=== PATIENT | female | born 1940 | race Caucasian/White ===

== ENCOUNTER 2018-04-14 13:45 | Outpatient (RCR) | payer MEDICARE, OTHER, SELFPAY ==
--- NOTE | 2018-03-18 14:31 | PT.OTN ---
Current Diagnoses Parkinson's disease (03/18/18) Foot drop, left foot (03/18/18) Sciatica, left side (03/18/18) Other symptoms and signs involving the musculoskeletal system (03/18/18) On March 15, 2018 our therapy services consisting of Speech, Occupational, and Physical therapy transitioned from [employer] electronic documentation system to a new [employer] electronic system. All documentation prior to March 15 can be found under [employer] saved data. From March 15 forward, all medical record documentation will be in [employer].
--- NOTE | 2018-03-18 15:26 | PT.OTN ---
Current Diagnoses Parkinson's disease (03/18/18) Foot drop, left foot (03/18/18) Sciatica, left side (03/18/18) Other symptoms and signs involving the musculoskeletal system (03/18/18) Physical Therapy Treatment Note PT-OP-A Visit Information Start: 03/18/18 14:32 Freq: Status: Active Protocol: Activity Type Activity Date Activity User E-Sign Co-Sign Detail Recorded Client Recorded Date Recorded By Document 03/18/18 10:35 GGD [email or web address] 03/18/18 14:46 GGD 03/18/18 10:35 Out-Patient Physical Therapy Visit Information [Visit Information] -Visit Type Treatment Note -Visit Start Time 10:35 -Visit Stop Time 11:13 -Total Visit Minutes 40 -Visit Number 8 G-code -Number of INSURANCE CLAIMS EXAMINER Visits 1 [Evaluation Information] -Evaluation Date 02/22/18 PT-OP-C Subjective Start: 03/18/18 14:32 Freq: Status: Active Protocol: Activity Type Activity Date Activity User E-Sign Co-Sign Detail Recorded Client Recorded Date Recorded By Document 03/18/18 10:35 GGD [email or web address] 03/18/18 14:46 GGD 03/18/18 10:35 OP-PT Subjective [Patient Comments] -Patient Comments Pt states that she is tired and didn't sleep much last night. She feel her balance is improving. -Patient Reported Progress Improving PT-OP-Q Treatments Start: 03/18/18 14:32 Freq: Status: Active Protocol: Activity Type Activity Date Activity User E-Sign Co-Sign Detail Recorded Client Recorded Date Recorded By Document 03/18/18 10:35 GGD [email or web address] 03/18/18 14:46 GGD 03/18/18 10:35 Cardio Equipment [Recumbent Elliptical ([employer])] -Duration (Minutes) 6 -Resistance 4 Gym Equipment [Shuttle Recovery] Unilateral Squats -Resistance 50 -Shuttle Recovery Platform Stable -Reps/Time 15 Bilateral Squats -Resistance 75 -Shuttle Recovery Platform Stable -Reps/Time 2 x 20 Therapeutic Exercises [Supine Exercises] 3 -Supine Exercise Name Psoas stretch -Side bilateral -Reps/Minutes 2 2 -Supine Exercise Name Piriformis Stetch -Side bilateral -Reps/Minutes 2 1 -Supine Exercise Name Hamstring stretch -Side bilateral -Reps/Minutes 4 [Sitting Exercises] 1 -Sitting Exercise Name forward trunk flexion into upright sitting shoulder horizontal abduction -Side bilateral -Reps/Minutes 6 Therapeutic Activity [Therapeutic Activity] 1 -Name transfers to stool -Reps/Minutes 8 -Comments transfer to and from sitting on 12 in stool to practice for gardening at home. Handout given for gardening stool with arms. PT-OP-T Assessment and Plan Start: 03/18/18 14:32 Freq: Status: Active Protocol: Activity Type Activity Date Activity User E-Sign Co-Sign Detail Recorded Client Recorded Date Recorded By Document 03/18/18 10:35 GGD [email or web address] 03/18/18 14:46 GGD 03/18/18 10:35 Physical Therapy Assessment [Assessment Summary] -Assessment Pt was able to use UE to assist with transfer off 12 in stool and feels that is a closer height to home stool. She is improving with strength, continue tight hamstrings. Physical Therapy Plan [Frequency and Duration] -Frequency of Treatment 2x/Week -Duration of Treatment 2 months -Plan of Care Start Date 02/22/18 -Plan of Care End Date 04/23/18 [Next Visit Focus/Plan] -Next Visit Plan Progress under current plan of care. Advance low stool transfers for gardening and flexibility.
--- NOTE | 2018-03-31 15:52 | PT.OTN ---
Current Diagnoses Parkinson's disease (03/31/18) Foot drop, left foot (03/31/18) Sciatica, left side (03/31/18) Other symptoms and signs involving the musculoskeletal system (03/31/18) Physical Therapy Treatment Note PT-OP-A Visit Information Start: 03/18/18 14:32 Freq: Status: Active Protocol: Document 03/31/18 13:45 AMB (Rec: 03/31/18 14:07 AMB [id number]) Out-Patient Physical Therapy Visit Information Visit Information Visit Type Treatment Note Visit Start Time 13:45 Visit Stop Time 14:30 Total Visit Minutes 45 Visit Number 08/24 g code Number of PRETZEL PACKER Visits 0 Evaluation Information Evaluation Date 02/22/18 PT-OP-C Subjective Start: 03/18/18 14:32 Freq: Status: Active Protocol: Document 03/31/18 13:45 AMB (Rec: 03/31/18 15:52 AMB [email or web address]) OP-PT Subjective Patient Comments Patient Comments The patient reports she was doing yardwork yesterday and was feeling pretty good with that. Today her left leg was cramping more, mostly in the calf. PT-OP-Q Treatments Start: 03/18/18 14:32 Freq: Status: Active Protocol: Document 03/31/18 13:45 AMB (Rec: 03/31/18 15:52 AMB [email or web address]) Therapeutic Exercises Supine Exercises 7 Supine Exercise Name Bridge Reps/Minutes 5 6 Supine Exercise Name supine marching Reps/Minutes 2x 10 5 Supine Exercise Name straight leg raise Reps/Minutes 2x 5 4 Supine Exercise Name calf stretch Side left 3 Supine Exercise Name Psoas stretch Side bilateral Reps/Minutes 2 2 Supine Exercise Name Piriformis Stetch Side bilateral Reps/Minutes 2 1 Supine Exercise Name Hamstring stretch Side bilateral Reps/Minutes 4 Sidelying Exercises 2 Sidelying Exercise Name clamshell Reps/Minutes 2 x 10 1 Sidelying Exercise Name sidelying abduction Reps/Minutes 1 x 10 PT-OP-T Assessment and Plan Start: 03/18/18 14:32 Freq: Status: Active Protocol: Document 03/31/18 13:45 AMB (Rec: 03/31/18 15:52 AMB [email or web address]) Physical Therapy Assessment Goals 3 Impairment Pain Short Term Goal (STG) The patient will sleep on her right side without left hip pain. STG Duration 4 weeks 2 Impairment ROM Short Term Goal (STG) The patient will improve her hip ROM so that she can don and doff her socs bilaterally without difficulty. STG Duration 4 weeks Roller Hand Goal (LTG) The patient will have 5 degrees of passive ankle dorsiflexion. LTG Duration 8 weeks 1 Impairment Gait Short Term Goal (STG) The patient will reduce her TUG with SPC to 20 seconds. STG Duration 4 weeks Roller Hand Goal (LTG) The patient will return to walking at the [facility] for exercise. LTG Duration 8 weeks Assessment Summary Assessment Tight hip into external rotation. Physical Therapy Plan Frequency and Duration Frequency of Treatment 2x/Week Duration of Treatment 2 months Plan of Care Start Date 02/22/18 Plan of Care End Date 04/23/18 Next Visit Focus/Plan Next Visit Plan Follow up on leg cramping. Follow up on return to walking .
--- NOTE | 2018-04-07 15:11 | PT.OTN ---
Current Diagnoses Parkinson's disease (04/07/18) Foot drop, left foot (04/07/18) Sciatica, left side (04/07/18) Other symptoms and signs involving the musculoskeletal system (04/07/18) Physical Therapy Treatment Note PT-OP-A Visit Information Start: 03/18/18 14:32 Freq: Status: Active Protocol: Document 04/07/18 13:45 AMB (Rec: 04/07/18 15:10 AMB [email or web address]) Out-Patient Physical Therapy Visit Information Visit Information Visit Type Treatment Note Visit Note 11/24 g code Visit Start Time 13:45 Visit Stop Time 14:30 Total Visit Minutes 45 Visit Number 11 Number of CLINIC SUPERVISOR Visits 0 Evaluation Information Evaluation Date 02/22/18 PT-OP-C Subjective Start: 03/18/18 14:32 Freq: Status: Active Protocol: Document 04/07/18 13:45 AMB (Rec: 04/07/18 15:10 AMB [email or web address]) OP-PT Subjective Patient Comments Patient Comments Patient reports she is concerned about the Parkinson' s affects on her arms (getting a coat on). PT-OP-Q Treatments Start: 03/18/18 14:32 Freq: Status: Active Protocol: Document 04/07/18 13:45 AMB (Rec: 04/07/18 15:10 AMB [email or web address]) Therapeutic Exercises Supine Exercises 2 Supine Exercise Name Piriformis Stetch Side bilateral Reps/Minutes 2 Sitting Exercises 2 Sitting Exercise Name ankle stretch Comments calf stretching 1 Sitting Exercise Name theraputting gripping Resistance yellow Comments pinch, molding line operator finger extension Standing Exercises 2 Standing Exercise Name shoulder IR at 90 abd t band Resistance 1 Reps/Minutes 2 x 10 1 Standing Exercise Name shoulder ER, tband Resistance 1 Reps/Minutes 2 x 10 Therapeutic Activity Therapeutic Activity 1 Name Donning a jacket Reps/Minutes 10 PT-OP-T Assessment and Plan Start: 03/18/18 14:32 Freq: Status: Active Protocol: Document 04/07/18 13:45 AMB (Rec: 04/07/18 15:10 AMB [email or web address]) Physical Therapy Assessment Goals 1 Impairment Gait Short Term Goal (STG) The patient will reduce her TUG with SPC to 20 seconds. - -Exceeded 15 seconds with and without SPC. STG Duration 4 weeks Restaurant Managing Partner Goal (LTG) [facility]. LTG Duration 8 weeks Assessment Summary Assessment Improved gait time. Difficulty donning a jacket, better when puts right shoulder in first. Physical Therapy Plan Next Visit Focus/Plan Next Note Type Treatment Note Next Visit Plan Follow up on return to walking Please Sign and Return: I have reviewed this Plan of Care and certify that the skilled therapy services above are required to meet the patient???s needs. Physician Signature Date Printed Name and Credentials Clinical Instructor Signature Printed Name and Credentials
--- NOTE | 2018-04-15 06:54 | PT.OTN ---
Current Diagnoses Parkinson's disease (04/14/18) Foot drop, left foot (04/14/18) Sciatica, left side (04/14/18) Other symptoms and signs involving the musculoskeletal system (04/14/18) Physical Therapy Treatment Note PT-OP-A Visit Information Start: 03/18/18 14:32 Freq: Status: Active Protocol: Document 04/14/18 13:45 AMB (Rec: 04/14/18 14:36 AMB [email or web address]) Out-Patient Physical Therapy Visit Information Visit Information Visit Type Discharge Summary Visit Start Time 13:45 Visit Stop Time 14:30 Total Visit Minutes 45 Visit Number 12 Number of OVEREDGER Visits 0 PT-OP-C Subjective Start: 03/18/18 14:32 Freq: Status: Active Protocol: Document 04/14/18 13:45 AMB (Rec: 04/14/18 14:41 AMB [id number]) OP-PT Subjective Patient Comments Patient Comments Pt is tired today because she did not sleep well, her friend this morning. She has been doing her exercises about 3x /week. Patient Questionnaires Lower Extremity Functional Scale LEFS Score 36 LEFS Impairment 40 to 59% Impaired (Score 32- 47) PT-OP-Q Treatments Start: 03/18/18 14:32 Freq: Status: Active Protocol: Document 04/14/18 13:45 AMB (Rec: 04/15/18 06:50 AMB [email or web address]) Therapeutic Exercises Supine Exercises 5 Supine Exercise Name straight leg raise Reps/Minutes 2x 5 2 Supine Exercise Name Piriformis Stetch Side bilateral Reps/Minutes 2 1 Supine Exercise Name Hamstring stretch Side bilateral Reps/Minutes 4 Sidelying Exercises 2 Sidelying Exercise Name clamshell Reps/Minutes 2 x 10 1 Sidelying Exercise Name sidelying abduction Reps/Minutes 1 x 10 Sitting Exercises 2 Sitting Exercise Name ankle stretch Comments calf stretching Neuro Re-Education Treatment Balance Activities 2 Details forward weight shift Comments with UE movement 1 Details modified tandem stance Comments EO/EC PT-OP-T Assessment and Plan Start: 03/18/18 14:32 Freq: Status: Active Protocol: Document 04/14/18 13:45 AMB (Rec: 04/15/18 06:50 AMB [email or web address]) Physical Therapy Assessment Goals 3 Impairment Pain Short Term Goal (STG) The patient will sleep on her right side without left hip pain. PROGRESS MADE STG Duration 4 weeks 2 Impairment ROM Short Term Goal (STG) The patient will improve her hip ROM so that she can don and doff her socks bilaterally without difficulty. PROGRESS MADE STG Duration 4 weeks Supervisor Customer Records Division Goal (LTG) The patient will have 5 degrees of passive ankle dorsiflexion. PROGRESS MADE- neutral dorsiflexion LTG Duration 8 weeks 1 Impairment Gait Short Term Goal (STG) The patient will reduce her TUG with SPC to 20 seconds. - -EXCEEDED 15 seconds with and without SPC. STG Duration 4 weeks Alf Goal (LTG) The patient will return to walking at the [facility] for exercise. NOT MET LTG Duration 8 weeks Assessment Summary Assessment Gloria feels that she is ready to be discharged. She states she feels stronger. Gardening (if she does it for more than an hour) can still increase her pain, but she is safer with her transfers and gait. Physical Therapy Plan Discharge Physical Therapy Discharge Reasons Goals Met Discharge Comments Patient is independent with her HEP. She has made good progress with her gait and floor transfers. Her ankle remains stiff, but she is stretching it now. Her hip pain is intermittent ( a few times a week) on the left, but she is able to stretch it out . Please Sign and Return: I have reviewed this Plan of Care and certify that the skilled therapy services above are required to meet the patient?s needs. Physician Signature Date Printed Name and Credentials Clinical Instructor Signature Printed Name and Credentials
== END 2018-04-15 10:21 ==
LOC: PHYS 13:45
PROVIDERS: Family Provider Physician Assistant; PCP Physician Assistant; Visit Provider Physician Assistant
DX: G20 Parkinson's disease (principal); R29.898 Other symptoms and signs involving the musculoskeletal system; M21.372 Foot drop, left foot; M54.32 Sciatica, left side
CPT/HCPCS: 97110; 97112; 97530

== ENCOUNTER 2018-10-15 17:30 | Emergency (ER) | payer MEDICARE, OTHER, SELFPAY ==
[2018-10-15 17:51] VITALS: BP 156/80; PULSE 78; RESP 20; TEMP 36.4; O2SAT 97
--- NOTE | 2018-10-15 18:35 | DI.CT.S_ITS ---
PROCEDURE: CT HEAD/BRAIN WO CON INDICATIONS: head feels funny, HTN emergency TECHNIQUE: Noncontrast 4.5 mm thick angled axial sections acquired from the foramen magnum to the vertex, with coronal and sagittal reformats. For radiation dose reduction, the following was used: automated exposure control, adjustment of mA and/or kV according to patient size. COMPARISON: None. FINDINGS: Image quality: Excellent. CSF spaces: Basal cisterns are patent. No extra-axial fluid collections. The ventricles are symmetric in size and shape. Brain: No intracranial bleeds or masses. There is cerebral volume loss for age, with resultant ventricular and sulcal prominence. There are periventricular and deep white matter chronic small vessel ischemic changes. There is intracranial internal carotid artery atherosclerosis. Skull and face: Calvarium and visualized facial bones appear intact, without suspicious lesions. Sinuses: Visualized sinuses and mastoids are clear. IMPRESSION: No acute intracranial disease process. Dictated by: Negar Parrish MD, PhD on 10/15/2018 at 19:11 Approved by: Negar Parrish MD, PhD on 10/15/2018 at 19:12
--- NOTE | 2018-10-15 18:39 | ED.HA ---
HPI - Headache General Chief Complaint: Hypertension Stated Complaint: elevated BP and abnormal EKG Time Seen by Provider: 10/15/18 17:48 Source: patient and family Mode of arrival: ambulatory Limitations: no limitations History of Present Illness HPI Narrative: 78-year-old female nonsmoker presents with family for evaluation of 4 days episodes vague headache type symptoms including the sensation that the left side of her head feels ?full?. She denies focal neurologic findings such as numbness, tingling or weakness. She denies any new blurred vision or trouble with speech. She denies injury. She was seen and evaluated at the walk-in clinic and was sent here for further evaluation once her systolic blood pressure was noted to be over 200. MD Complaint: headache Onset (ago): day(s) Onset description: gradual Location: left Severity: mild Quality: aching and throbbing Relieving factors: nothing Exacerbating factors: none Associated symptoms: none Treatments prior to arrival: none Related Data Home Medications Medication Instructions Recorded Confirmed ASPIRIN (#ASPIRIN) 325 mg PO PRN #0 05/26/11 10/15/18 [VITAMIN D3] 2,400 iu PO SEE INSTRUCTIONS #0 10/12/16 10/15/18 calcium carbonate [Tums Ultra] 1,000 mg PO PRN PRN #0 10/12/16 10/15/18 [BIOTIN] 1,000 mg PO QDAY #0 10/14/17 10/15/18 Previous Rx's Medication Instructions Recorded clonidine HCl 0.1 mg PO QDAY PRN #90 tab 07/24/16 Disabled Parking Permit ea #1 10/12/16 pneumoc 13-yari conj-dip cr(PF) 0.5 ml IM X1 #1 ea 10/12/16 [Prevnar 13 (PF)] carvedilol [Coreg] 6.25 tab PO BID #90 tab 10/14/17 mirtazapine 15 - 30 mg PO HS #30 tab 10/14/17 ramipril [Altace] 10 mg PO QDAY #90 cap 12/10/17 carbidopa 25 mg-levodopa 100 mg 1 tab PO TID #270 tab 03/29/18 tablet lorazepam 0.5 mg tablet 0.25 - 0.5 mg PO QDAY-HS #45 tab 10/12/18 Allergies Allergy/AdvReac Type Severity Reaction Status Date / Time aluminum Allergy Severe (Antiperspirants) Verified 10/15/18 16:48 Rash adhesive Allergy Mild BLISTERS Verified 10/15/18 16:48 Influenza Virus Vaccines AdvReac Severe SWOLLEN Verified 10/15/18 16:48 [INFLUENZA VIRUS VACCINES] THROAT, TINGLING LIPS AND TONGUE Review of Systems Review of Systems All systems reviewed & are unremarkable except as noted in HPI and below Constitutional Denies chills, Denies fever(s), Reports headache(s), Denies lethargy and Denies weakness Eyes Denies change in vision, Denies eye discharge, Denies irritation and Denies loss of vision ENT Ears, Nose, Mouth, and Throat: Denies change in voice, Reports headache(s), Denies neck pain and Denies sore throat Cardiovascular Denies chest pain, Denies irregular heart rhythm, Denies lightheadedness, Denies palpitations, Denies dyspnea, Denies dyspnea on exertion and Denies orthopnea Respiratory Denies cough, Denies dyspnea, Denies dyspnea on exertion and Denies wheezing Gastrointestinal Gastrointestinal: Denies abdominal pain, Denies change in bowel habits, Denies diarrhea, Denies nausea and Denies vomiting Genitourinary Denies hematuria, Denies flank pain, Denies urinary incontinence and Denies urinary urgency Musculoskeletal Denies neck pain Integumentary/Breasts Denies pruritus, Denies erythema, Denies rash and Denies wounds Neurologic Denies confusion, Reports headache(s), Denies loss of vision and Denies weakness Psychiatric Denies anxiety, Denies confusion, Denies depression, Denies homicidal ideation and Denies suicidal ideation Endocrine Denies palpitations Hematologic/Lymphatic Denies easy bruising Allergic/Immunologic Denies wheezing [facility] Social History Smoking Status: Never smoker Exam Narrative Exam Narrative: GENERAL: This is a well-nourished, well-developed patient, in mild distress. HEAD: Atraumatic. Normocephalic. No temporal or scalp tenderness. EYES: Pupils equal round and reactive. Extraocular motions intact. No scleral icterus. No injection or drainage. ENT: Nose without bleeding, purulent drainage or septal hematoma. Throat without erythema, tonsillar hypertrophy or exudate. Uvula midline. Airway patent. NECK: Trachea midline. No JVD or lymphadenopathy. Supple, nontender, no meningeal signs. CARDIOVASCULAR: Regular rate and rhythm without murmurs, gallops, or rubs. RESPIRATORY: Clear to auscultation. Breath sounds equal bilaterally. No wheezes, rales, or rhonchi. GASTROINTESTINAL: Abdomen soft, non-tender, nondistended. No hepato-splenomegaly, or palpable masses. No guarding. EXTREMITIES: No clubbing, cyanosis, or edema. No joint tenderness, effusion, or edema noted. BACK: Nontender without deformity or crepitance. No flank tenderness. NEURO: AOx3. SKIN: No rash or erythema. Initial Vital Signs Initial Vital Signs: Vital Signs Temperature 97.6 F 10/15/18 17:51 Pulse Rate 78 10/15/18 17:51 Respiratory Rate 20 10/15/18 17:51 Blood Pressure 156/80 H 10/15/18 17:51 Pulse Oximetry 97 10/15/18 17:51 Scores NIH Stroke Scale Level of Conciousness: Alert, keenly responsive Ask month/age: Answers both questions correctly. Open/close eyes, close hand: Performs both tasks correctly Best gaze horizontal: Normal Visual justice: No visual loss Facial palsy: Normal symetrical movement Left arm drift: No drift for full 10 sec Right arm drift: No drift for full 10 sec Left leg drift: No drift for full 10 sec Right leg drift: No drift for full 10 sec Limb ataxia: Absent Sensory on face/arms/legs: Normal, no sensory loss Best language: No aphasia, normal Dysarthria: Normal Extinction or inattention: No abnormality Total NIH Stroke scale score: 0 Course Orders Ordered: ED Orders 10/15/18 17:51 EKG-12 Lead Stat 10/15/18 18:35 CT head/brain wo con Stat 10/15/18 18:40 Basic Metabolic Panel Stat Complete Blood Count AUTO DIFF Stat Troponin I Stat Reevaluation(s) Reevaluation #1: BP down to the 150s, patient feeling largely asymptomatic Vital Signs - 8 hr 10/15/18 17:51 10/15/18 19:03 10/15/18 20:03 Temperature 97.6 F Pulse Rate 78 75 91 H Respiratory Rate 20 20 24 Blood Pressure 156/80 H 161/80 H Blood Pressure [Right Arm] 155/70 H Pulse Oximetry 97 98 96 MDM - Headache Medical Records Attestation: I reviewed the patient's medical records. Lab Data Attestation: I reviewed the patient's lab results. Result diagrams: 10/15/18 18:40 10/15/18 18:40 Lab Results 10/15/18 10/15/18 Range/Units 18:40 18:40 WBC 5.0 (4.5-11.0) X10^3/uL RBC 4.66 (4.0-5.2) X10^6/uL Hgb 14.5 (12.0-16.0) g/dL Hct 42.0 (36-46) % MCV 90.1 (80-100) fL MCH 31.0 (26-34) PG MCHC 34.4 (30-36) % RDW 13.1 (11.6-14.8) % Plt Count 318 (150-400) X10^3/uL Neut % (Auto) 52.7 (50-75) % Lymph % (Auto) 36.7 (25-40) % [place] % (Auto) 8.7 (3-14) % Eos % (Auto) 1.1 L (2-4) % Baso % (Auto) 0.8 (0-2) % Neut # (Auto) 2600 L (0547-6830) /uL Sodium 144 (137-145) mmol/L Potassium 4.6 (3.4-5.1) mmol/L Chloride 107 (98-107) mmol/L Carbon Dioxide 25 (22-32) mmol/L BUN 17 (7-17) mg/dL Creatinine 0.90 (0.52-1.04) mg/dL Estimated GFR > 60.0 (>60) mL/min BUN/Creatinine Ratio 18.9 (6-22) Glucose 90 (80-110) mg/dL Calcium 10.0 (8.4-10.2) mg/dL Troponin I < 0.012 (0.01-0.034) ng/mL Imaging Data CT scan - head: Radiologist's impression: [address] [address] [address] Scan Report Signed Patient: Gloria Anderson JMR#: [id number] : 1940Acct:[id number] Age/Sex: 78 / FDate of Service: 10/15/18 Loc: ED Accession Number: [id number] Procedure: CT head/brain wo con Ordering Provider: Chris Raines D.O. PROCEDURE: CT HEAD/BRAIN WO CON INDICATIONS: head feels funny, HTN emergency TECHNIQUE: Noncontrast 4.5 mm thick angled axial sections acquired from the foramen magnum to the vertex, with coronal and sagittal reformats. For radiation dose reduction, the following was used: automated exposure control, adjustment of mA and/or kV according to patient size. COMPARISON: None. FINDINGS: Image quality: Excellent. CSF spaces: Basal cisterns are patent. No extra-axial fluid collections. The ventricles are symmetric in size and shape. Brain: No intracranial bleeds or masses. There is cerebral volume loss for age, with resultant ventricular and sulcal prominence. There are periventricular and deep white matter chronic small vessel ischemic changes. There is intracranial internal carotid artery atherosclerosis. Skull and face: Calvarium and visualized facial bones appear intact, without suspicious lesions. Sinuses: Visualized sinuses and mastoids are clear. IMPRESSION: No acute intracranial disease process. Dictated by: Negar Parrish MD, PhD on 10/15/2018 at 19:11 Approved by: Negar Parrish MD, PhD on 10/15/2018 at 19:12 ECG Data Attestation: I personally reviewed and interpreted this ECG as follows: Prior ECG tracings: not available for review MDM Narrative Medical decision making narrative: patient with episodic GOMEZ and the abscence of other findings. BP has been elevated but returns to 150s without intervention. Unremarkable labs and CT. Unlikely that BP, SAH or other ominous source is cause of GOMEZ Discharge Plan Departure Patient Disposition: Home Clinical Impression: Essential hypertension Discharge Date/Time: 10/15/18 20:04 Interventions: ED Discharge Assessment Last Done: 10/15/18 20:03 Instructions: DI for High Blood Pressure Activity Restrictions/Additional Instructions: *You have been diagnosed with [ hypertension ] *What to do: *Continue to take medications as directed *Follow up with your primary care provider in 2-3 days, call for an appointment. Let them know you were seen in the Emergency Department and that we ask that you be seen in follow up *Return to ER if you should have any new, worsening or concerning symptoms Prescriptions: No Action carbidopa-levodopa 25-100 mg tablet 1 tab PO TID Qty: 270 RF: 3 ASPIRIN (#ASPIRIN) 325 mg PO PRN Qty: 0 RF: 0 clonidine HCl 0.1 MG tablet 0.1 mg PO QDAY PRNQty: 90 RF: 0 calcium carbonate [Tums Ultra] 1,000 MG tablet,chewable 1,000 mg PO PRN PRNQty: 0 RF: 0 [VITAMIN D3] 2,400 iu PO SEE INSTRUCTIONS Qty: 0 RF: 0 pneumoc 13-yari conj-dip cr(PF) [Prevnar 13 (PF)] 0.5 ML syringe 0.5 ml IM X1 Qty: 1 RF: 0 Disabled Parking Permit Qty: 1 RF: 0 [BIOTIN] 1,000 mg PO QDAY Qty: 0 RF: 0 carvedilol [Coreg] 12.5 MG tablet 6.25 tab PO BID Qty: 90 RF: 3 mirtazapine 15 MG tablet,disintegrating 15 - 30 mg PO HS Qty: 30 RF: 0 ramipril [Altace] 10 MG capsule 10 mg PO QDAY Qty: 90 RF: 3 lorazepam 0.5 mg tablet 0.25 - 0.5 mg PO QDAY-HS Qty: 45 RF: 0 Referrals: Enid Matthew PA-C [Primary Care Provider] -
--- NOTE | 2018-10-15 18:42 | ED_ITS ---
HPI - Headache General Chief Complaint: Hypertension Stated Complaint: elevated BP and abnormal EKG Time Seen by Provider: 10/15/18 17:48 Source: patient and family Mode of arrival: ambulatory Limitations: no limitations History of Present Illness HPI Narrative: 78-year-old female nonsmoker presents with family for evaluation of 4 days episodes vague headache type symptoms including the sensation that the left side of her head feels ?full?. She denies focal neurologic findings such as numbness, tingling or weakness. She denies any new blurred vision or trouble with speech. She denies injury. She was seen and evaluated at the walk- in clinic and was sent here for further evaluation once her systolic blood pressure was noted to be over 200. MD Complaint: headache Onset (ago): day(s) Onset description: gradual Location: left Severity: mild Quality: aching and throbbing Relieving factors: nothing Exacerbating factors: none Associated symptoms: none Treatments prior to arrival: none Related Data Home Medications Medication Instructions Recorded Confirmed ASPIRIN (#ASPIRIN) 325 mg PO PRN #0 05/26/11 10/15/18 [VITAMIN D3] 2,400 iu PO SEE INSTRUCTIONS #0 10/12/16 10/15/18 calcium carbonate [Tums Ultra] 1,000 mg PO PRN PRN #0 10/12/16 10/15/18 [BIOTIN] 1,000 mg PO QDAY #0 10/14/17 10/15/18 Previous Rx's Medication Instructions Recorded clonidine HCl 0.1 mg PO QDAY PRN #90 tab 07/24/16 Disabled Parking Permit ea #1 10/12/16 pneumoc 13-yari conj-dip cr(PF) 0.5 ml IM X1 #1 ea 10/12/16 [Prevnar 13 (PF)] carvedilol [Coreg] 6.25 tab PO BID #90 tab 10/14/17 mirtazapine 15 - 30 mg PO HS #30 tab 10/14/17 ramipril [Altace] 10 mg PO QDAY #90 cap 12/10/17 carbidopa 25 mg-levodopa 100 mg 1 tab PO TID #270 tab 03/29/18 tablet lorazepam 0.5 mg tablet 0.25 - 0.5 mg PO QDAY-HS #45 tab 10/12/18 Allergies Allergy/AdvReac Type Severity Reaction Status Date / Time aluminum Allergy Severe (Antiperspirants) Verified 10/15/18 16:48 Rash adhesive Allergy Mild BLISTERS Verified 10/15/18 16:48 Influenza Virus Vaccines AdvReac Severe SWOLLEN Verified 10/15/18 16:48 [INFLUENZA VIRUS VACCINES] THROAT, TINGLING LIPS AND TONGUE Review of Systems Review of Systems All systems reviewed & are unremarkable except as noted in HPI and below Constitutional Denies chills, Denies fever(s), Reports headache(s), Denies lethargy and Denies weakness Eyes Denies change in vision, Denies eye discharge, Denies irritation and Denies loss of vision ENT Ears, Nose, Mouth, and Throat: Denies change in voice, Reports headache(s), Denies neck pain and Denies sore throat Cardiovascular Denies chest pain, Denies irregular heart rhythm, Denies lightheadedness, Denies palpitations, Denies dyspnea, Denies dyspnea on exertion and Denies orthopnea Respiratory Denies cough, Denies dyspnea, Denies dyspnea on exertion and Denies wheezing Gastrointestinal Gastrointestinal: Denies abdominal pain, Denies change in bowel habits, Denies diarrhea, Denies nausea and Denies vomiting Genitourinary Denies hematuria, Denies flank pain, Denies urinary incontinence and Denies urinary urgency Musculoskeletal Denies neck pain Integumentary/Breasts Denies pruritus, Denies erythema, Denies rash and Denies wounds Neurologic Denies confusion, Reports headache(s), Denies loss of vision and Denies weakness Psychiatric Denies anxiety, Denies confusion, Denies depression, Denies homicidal ideation and Denies suicidal ideation Endocrine Denies palpitations Hematologic/Lymphatic Denies easy bruising Allergic/Immunologic Denies wheezing [facility] Social History Smoking Status: Never smoker Exam Narrative Exam Narrative: GENERAL: This is a well-nourished, well-developed patient, in mild distress. HEAD: Atraumatic. Normocephalic. No temporal or scalp tenderness. EYES: Pupils equal round and reactive. Extraocular motions intact. No scleral icterus. No injection or drainage. ENT: Nose without bleeding, purulent drainage or septal hematoma. Throat without erythema, tonsillar hypertrophy or exudate. Uvula midline. Airway patent. NECK: Trachea midline. No JVD or lymphadenopathy. Supple, nontender, no meningeal signs. CARDIOVASCULAR: Regular rate and rhythm without murmurs, gallops, or rubs. RESPIRATORY: Clear to auscultation. Breath sounds equal bilaterally. No wheezes , rales, or rhonchi. GASTROINTESTINAL: Abdomen soft, non-tender, nondistended. No hepato-splenomegaly , or palpable masses. No guarding. EXTREMITIES: No clubbing, cyanosis, or edema. No joint tenderness, effusion, or edema noted. BACK: Nontender without deformity or crepitance. No flank tenderness. NEURO: AOx3. SKIN: No rash or erythema. Initial Vital Signs Initial Vital Signs: Vital Signs Temperature 97.6 F 10/15/18 17:51 Pulse Rate 78 10/15/18 17:51 Respiratory Rate 20 10/15/18 17:51 Blood Pressure 156/80 H 10/15/18 17:51 Pulse Oximetry 97 10/15/18 17:51 Scores NIH Stroke Scale Level of Conciousness: Alert, keenly responsive Ask month/age: Answers both questions correctly. Open/close eyes, close hand: Performs both tasks correctly Best gaze horizontal: Normal Visual justice: No visual loss Facial palsy: Normal symetrical movement Left arm drift: No drift for full 10 sec Right arm drift: No drift for full 10 sec Left leg drift: No drift for full 10 sec Right leg drift: No drift for full 10 sec Limb ataxia: Absent Sensory on face/arms/legs: Normal, no sensory loss Best language: No aphasia, normal Dysarthria: Normal Extinction or inattention: No abnormality Total NIH Stroke scale score: 0 Course Orders Ordered: ED Orders 10/15/18 17:51 EKG-12 Lead Stat 10/15/18 18:35 CT head/brain wo con Stat 10/15/18 18:40 Basic Metabolic Panel Stat Complete Blood Count AUTO DIFF Stat Troponin I Stat Reevaluation(s) Reevaluation #1: BP down to the 150s, patient feeling largely asymptomatic Vital Signs - 8 hr 10/15/18 17:51 10/15/18 19:03 10/15/18 20:03 Temperature 97.6 F Pulse Rate 78 75 91 H Respiratory Rate 20 20 24 Blood Pressure 156/80 H 161/80 H Blood Pressure [Right Arm] 155/70 H Pulse Oximetry 97 98 96 MDM - Headache Medical Records Attestation: I reviewed the patient's medical records. Lab Data Attestation: I reviewed the patient's lab results. Result diagrams: 10/15/18 18:40 10/15/18 18:40 Lab Results 10/15/18 10/15/18 Range/Units 18:40 18:40 WBC 5.0 (4.5-11.0) X10^3/uL RBC 4.66 (4.0-5.2) X10^6/uL Hgb 14.5 (12.0-16.0) g/dL Hct 42.0 (36-46) % MCV 90.1 (80-100) fL MCH 31.0 (26-34) PG MCHC 34.4 (30-36) % RDW 13.1 (11.6-14.8) % Plt Count 318 (150-400) X10^3/uL Neut % (Auto) 52.7 (50-75) % Lymph % (Auto) 36.7 (25-40) % [place] % (Auto) 8.7 (3-14) % Eos % (Auto) 1.1 L (2-4) % Baso % (Auto) 0.8 (0-2) % Neut # (Auto) 2600 L (2060-5616) /uL Sodium 144 (137-145) mmol/L Potassium 4.6 (3.4-5.1) mmol/L Chloride 107 (98-107) mmol/L Carbon Dioxide 25 (22-32) mmol/L BUN 17 (7-17) mg/dL Creatinine 0.90 (0.52-1.04) mg/dL Estimated GFR > 60.0 (>60) mL/min BUN/Creatinine Ratio 18.9 (6-22) Glucose 90 (80-110) mg/dL Calcium 10.0 (8.4-10.2) mg/dL Troponin I < 0.012 (0.01-0.034) ng/mL Imaging Data CT scan - head: Radiologist's impression: [address] [address] [address] Scan Report Signed Patient: Gloria Anderson JMR#: [id number] : 1940Acct:[id number] Age/Sex: 78 / FDate of Service: 10/15/18 Loc: ED Accession Number: [id number] Procedure: CT head/brain wo con Ordering Provider: Chris Raines D.O. PROCEDURE: CT HEAD/BRAIN WO CON INDICATIONS: head feels funny, HTN emergency TECHNIQUE: Noncontrast 4.5 mm thick angled axial sections acquired from the foramen magnum to the vertex, with coronal and sagittal reformats. For radiation dose reduction, the following was used: automated exposure control, adjustment of mA and/or kV according to patient size. COMPARISON: None. FINDINGS: Image quality: Excellent. CSF spaces: Basal cisterns are patent. No extra-axial fluid collections. The ventricles are symmetric in size and shape. Brain: No intracranial bleeds or masses. There is cerebral volume loss for age , with resultant ventricular and sulcal prominence. There are periventricular and deep white matter chronic small vessel ischemic changes. There is intracranial internal carotid artery atherosclerosis. Skull and face: Calvarium and visualized facial bones appear intact, without suspicious lesions. Sinuses: Visualized sinuses and mastoids are clear. IMPRESSION: No acute intracranial disease process. Dictated by: Negar Parrish MD, PhD on 10/15/2018 at 19:11 Approved by: Negar Parrish MD, PhD on 10/15/2018 at 19:12 ECG Data Attestation: I personally reviewed and interpreted this ECG as follows: Prior ECG tracings: not available for review MDM Narrative Medical decision making narrative: patient with episodic GOMEZ and the abscence of other findings. BP has been elevated but returns to 150s without intervention. Unremarkable labs and CT. Unlikely that BP, SAH or other ominous source is cause of GOMEZ Discharge Plan Departure Patient Disposition: Home Clinical Impression: Essential hypertension Discharge Date/Time: 10/15/18 20:04 Interventions: ED Discharge Assessment Last Done: 10/15/18 20:03 Instructions: DI for High Blood Pressure Activity Restrictions/Additional Instructions: *You have been diagnosed with [ hypertension ] *What to do: *Continue to take medications as directed *Follow up with your primary care provider in 2-3 days, call for an appointment. Let them know you were seen in the Emergency Department and that we ask that you be seen in follow up *Return to ER if you should have any new, worsening or concerning symptoms Prescriptions: No Action carbidopa-levodopa 25-100 mg tablet 1 tab PO TID Qty: 270 RF: 3 ASPIRIN (#ASPIRIN) 325 mg PO PRN Qty: 0 RF: 0 clonidine HCl 0.1 MG tablet 0.1 mg PO QDAY PRNQty: 90 RF: 0 calcium carbonate [Tums Ultra] 1,000 MG tablet,chewable 1,000 mg PO PRN PRNQty: 0 RF: 0 [VITAMIN D3] 2,400 iu PO SEE INSTRUCTIONS Qty: 0 RF: 0 pneumoc 13-yari conj-dip cr(PF) [Prevnar 13 (PF)] 0.5 ML syringe 0.5 ml IM X1 Qty: 1 RF: 0 Disabled Parking Permit Qty: 1 RF: 0 [BIOTIN] 1,000 mg PO QDAY Qty: 0 RF: 0 carvedilol [Coreg] 12.5 MG tablet 6.25 tab PO BID Qty: 90 RF: 3 mirtazapine 15 MG tablet,disintegrating 15 - 30 mg PO HS Qty: 30 RF: 0 ramipril [Altace] 10 MG capsule 10 mg PO QDAY Qty: 90 RF: 3 lorazepam 0.5 mg tablet 0.25 - 0.5 mg PO QDAY-HS Qty: 45 RF: 0 Referrals: Enid Matthew PA-C [Primary Care Provider] -
[2018-10-15 18:54] LABS: Add Manual Diff / Slide Review NO; Basophils Percent Auto 0.8 % (0-2); Eosinophils Percent Auto 1.1 % (2-4); Hemoglobin 14.5 g/dL (12.0-16.0); Lymphocytes Percent Auto 36.7 % (25-40); Mean Corpuscular HGB Conc 34.4 % (30-36); Mean Corpuscular Volume 90.1 fL (80-100); Monocytes Percent Auto 8.7 % (3-14); Neutrophils Absolute Auto 2600 /uL (3000-5900); Neutrophils Percent Auto 52.7 % (50-75); Platelet Count 318 X10^3/uL (150-400); Red Blood Cell Count 4.66 X10^6/uL (4.0-5.2); Red Cell Distribution Width 13.1 % (11.6-14.8)
--- NOTE | 2018-10-15 18:54 | PC.NURSE ---
Pt Has had increased bp's with systolic in the 200s over past couple days. Has had some tingling in left church area on head and reports head feels full.
[2018-10-15 19:00] LABS: BUN Creatinine Ratio 18.9 (6-22); Blood Urea Nitrogen 17 mg/dL (7-17); Carbon Dioxide 25 mmol/L (22-32); Chloride 107 mmol/L (98-107); Estimated Glomerular Filt Rate > 60.0 mL/min (>60); Glucose 90 mg/dL (80-110); HEMOLYSIS < 15 (0-50); Potassium 4.6 mmol/L (3.4-5.1); Sodium 144 mmol/L (137-145)
[2018-10-15 19:03] VITALS: BP 155/70; PULSE 75; RESP 20; O2SAT 98
[2018-10-15 19:12] LABS: Troponin I < 0.012 ng/mL (0.01-0.034)
[2018-10-15 20:03] VITALS: BP 161/80; PULSE 91; RESP 24; O2SAT 96
== END 2018-10-15 20:04 | disposition home or self-care (01) ==
PROVIDERS: Emergency Provider Emergency Medicine; Family Provider Physician Assistant; PCP Physician Assistant
DX: I10 Essential (primary) hypertension (principal); R51 Headache
CPT/HCPCS: 36591; 70450; 80048; 84484; 85025; 93005; 93010; 99282; 99285

== ENCOUNTER → 2018-11-21 14:57 | Outpatient (CLI) | payer MEDICARE, OTHER, SELFPAY ==
--- NOTE | 2018-11-21 | DI.ECHO.S_ITS ---
[facility] +---------+ : : [address] : : : : [id number] : : : : Phone: [phone]+ Echocardiogram Report + + :Name: BRAD MELVIN Study Date: 11/21/2018 Height: 63 in : :[facility] Exam Location: [facility] Weight: 146 lb : : Gender: Female BSA: 1.7 m2 : :: 1940 Age: 78 yrs BP: 142/80 mmHg: :Reason For Study: Abnormal EKG : :Ordering Physician: Camila : :Marnie Sorto Performed By: Riya Hickman : :Referring: CAMILA SORTO : + + Interpretation Summary 1) Normal left ventricular thickness, size, wall motion, and systolic function (EF 65-70%). 2) Normal right ventricular size and function. 3) Mild aortic regurgitation present. 4) Compared to the Echo done 08/22/2009, mild aortic regurgitation is present on this study. Procedure: A two-dimensional transthoracic echocardiogram with color flow and Doppler was performed. The study quality was technically adequate. Comparison is made with the echocardiogram of 08/22/2009. The patient was in sinus tachycardia with heart rates between 93-115 bpm during the exam. Left Ventricle: The left ventricle is normal in size. There is normal left ventricular wall thickness. The ejection fraction is estimated to be 65-70%. Diastolic function could not be accurately assessed due to tachycardia. Right Ventricle: The right ventricle is normal in size and function. Atria: Both atria are normal in size. The interatrial septum is intact with no evidence for an atrial septal defect. Mitral Valve: The mitral valve is normal in structure and function. There is trace mitral regurgitation. Aortic Valve: The aortic valve is trileaflet. The aortic valve opens well. There is no aortic valve stenosis. There is mild aortic regurgitation. Tricuspid Valve: The tricuspid valve is normal in structure and function. There is a trace or physiologic amount of tricuspid regurgitation. Pulmonary artery pressures cannot be estimated because of the lack of a measurable TR jet velocity. Pulmonic Valve: The pulmonic valve is not well seen, but is grossly normal. There is a trace or physiologic amount of pulmonic regurgitation. Great Vessels: The aortic root is normal size. The ascending aorta is normal in size. The IVC is of normal diameter and collapses greater than 50% with a sniff. This suggests a low right atrial pressure of 3 mm Hg. Pericardium/ Pleura There is no pericardial effusion. There is no pleural effusion. MMode/2D Measurements & Calculations LVIDd: 4.0 cm LVOT diam: 2.1 cm LVIDs: 1.9 cm Ao root diam: 3.4 cm FS: 51.4 % asc Aorta Diam: 3.1 cm IVSd: 0.94 cm Ao Arch Diam (Prox Trans): 2.2 cm LVPWd: 1.1 cm LV dominguez. diameter/BSA (cm/m^2): 2.4 LV sys. diameter/BSA (cm/m^2): 1.1 LA A2 area: 18.1 cm2 RA long axis: 3.8 cm LA A4 area: 12.2 cm2 RA area: 10.6 cm2 LA length (vol): 4.5 cm RA vol: 25.3 ml LA vol: 41.7 ml RA : 15.0 ml/m2 LA vol index: 24.6 ml/m2 TAPSE: 2.4 cm Doppler Measurements & Calculations Ao V2 max: 122.8 cm/sec LVOT Max Manolo: 103.0 cm/sec Ao V2 mean: 94.7 cm/sec LV V1 max P.2 mmHg Ao max P.0 mmHg LV V1 VTI: 14.3 cm Ao mean P.8 mmHg APOLLO(I,D): 2.7 cm2 Ao V2 VTI: 18.5 cm APOLLO(V,D): 2.9 cm2 sev ratio: 0.77 APOLLO indexed to BSA (cm^2/m^2): 1.6 PA V2 max: 70.0 cm/sec SV(LVOT): 49.7 ml PA V2 mean: 46.6 cm/sec PA mean P.98 mmHg PA pr(Accel): 45.7 mmHg Reading Physician:12:22 PM
== END ==
PROVIDERS: Family Provider Physician Assistant; PCP Physician Assistant; Visit Provider Internal Medicine Cardiovascular Disease
DX: I35.1 Nonrheumatic aortic (valve) insufficiency (principal)
CPT/HCPCS: 93306

== ENCOUNTER → 2018-12-23 14:11 | Outpatient (CLI) | payer MEDICARE, OTHER, SELFPAY ==
[2018-12-23 15:17] LABS: Cholesterol 249 mg/dL (140-199); Triglycerides 118 mg/dL (35-150)
[2018-12-23 15:29] LABS: HDL Cholesterol 118 mg/dL (40-60); LDL Cholesterol Calculated 107 mg/dL (<100)
[2018-12-23 15:47] LABS: Thyroid Stimulating Hormone 2.05 uIU/mL (0.47-4.68)
== END ==
PROVIDERS: Family Provider Physician Assistant; PCP Physician Assistant; Visit Provider Internal Medicine Cardiovascular Disease
DX: I10 Essential (primary) hypertension (principal); R00.0 Tachycardia, unspecified
CPT/HCPCS: 36415; 80061; 84443

== ENCOUNTER → 2018-12-30 11:27 | Outpatient (CLI) | payer MEDICARE, OTHER, SELFPAY ==
[2018-12-30 12:15] LABS: Add Manual Diff / Slide Review NO; Basophils Absolute Auto 100 /uL (0-100); Basophils Percent Auto 1.2 % (0-2); Eosinophils Absolute Auto 100 /uL (0-450); Eosinophils Percent Auto 1.8 % (2-4); Hematocrit 41.8 % (36-46); Hemoglobin 14.1 g/dL (12.0-16.0); Lymphocytes Absolute Auto 1800 /uL (1100-4500); Lymphocytes Percent Auto 33.3 % (25-40); Mean Corpuscular HGB Conc 33.7 % (30-36); Monocytes Absolute Auto 400 /uL (0-900); Monocytes Percent Auto 8.1 % (3-14); Neutrophils Absolute Auto 3000 /uL (1500-7000); Neutrophils Percent Auto 55.6 % (50-75); Platelet Count 405 X10^3/uL (150-400); Red Cell Distribution Width 12.8 % (11.6-14.8); White Blood Cell Count 5.5 X10^3/uL (4.5-11.0)
[2018-12-30 12:39] LABS: Blood Urea Nitrogen 22 mg/dL (7-17); Calcium 9.8 mg/dL (8.4-10.2); Carbon Dioxide 26 mmol/L (22-32); Chloride 103 mmol/L (98-107); Estimated Glomerular Filt Rate 53.3 mL/min (>60); Glucose 115 mg/dL (80-110); HEMOLYSIS < 15 (0-50); Potassium 4.5 mmol/L (3.4-5.1); Sodium 139 mmol/L (137-145)
== END ==
PROVIDERS: Family Provider Physician Assistant; PCP Physician Assistant; Visit Provider Internal Medicine Cardiovascular Disease
DX: I10 Essential (primary) hypertension (principal); R00.0 Tachycardia, unspecified
CPT/HCPCS: 36415; 80048; 85025

== ENCOUNTER → 2019-03-13 14:56 | Outpatient (CLI) | payer MEDICARE, OTHER, SELFPAY ==
--- NOTE | 2019-03-13 14:58 | DI.RAD.S_ITS ---
PROCEDURE: XR ANKLE LT MIN 3V INDICATIONS: Left ankle pain and swelling - suspect osteoarthritis TECHNIQUE: 3 views of the ankle were acquired. COMPARISON: [facility], , ANKLE 3 VIEWS LEFT, 09/03/2008, 16:43. FINDINGS: Bones: No fractures or dislocations but there is a mild degree of tibiotalar joint osteoarthritic change. Ankle mortise is normally aligned. No suspicious bony lesions. Soft tissues: No tibiotalar joint effusion. Achilles tendon appears normal. 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 Dictated by: Jonathan Garcia M.D. on 03/13/2019 at 15:21 Approved by: Jonathan Garcia M.D. on 03/13/2019 at 15:22
--- NOTE | 2019-03-13 14:58 | DI.RAD.S_ITS ---
PROCEDURE: XR HIP W PEL IF DONE LT 2V INDICATIONS: pain in left hip difficulty walking - suspect osteoarthritis TECHNIQUE: 2 views of the hip were acquired. COMPARISON: [facility], , HIP 2V RIGHT, 07/25/2015, 13:50. FINDINGS: Bones: No fractures or dislocations. No suspicious bony lesions. The visualized pelvic ring appears intact. Mild left hip joint osteoarthritis. Soft tissues: No suspicious soft tissue calcifications or masses. IMPRESSION: Mild left hip joint osteoarthritis, no trauma found. Dictated by: Jonathan Garcia M.D. on 03/13/2019 at 15:22 Approved by: Jonathan Garcia M.D. on 03/13/2019 at 15:22
== END ==
PROVIDERS: Family Provider Physician Assistant; PCP Physician Assistant; Visit Provider Physician Assistant
DX: M25.552 Pain in left hip (principal); M25.572 Pain in left ankle and joints of left foot; M19.072 Primary osteoarthritis, left ankle and foot; M16.12 Unilateral primary osteoarthritis, left hip; M25.472 Effusion, left ankle
CPT/HCPCS: 73502; 73610

== ENCOUNTER → 2019-06-16 11:31 | Outpatient (CLI) | payer MEDICARE, OTHER, SELFPAY ==
[2019-06-16 13:04] LABS: BUN Creatinine Ratio 24.5 (6-22); Blood Urea Nitrogen 27 mg/dL (7-17); Calcium 10.1 mg/dL (8.4-10.2); Carbon Dioxide 24 mmol/L (22-32); Chloride 103 mmol/L (98-107); Estimated Glomerular Filt Rate 47.8 mL/min (>60); Glucose 147 mg/dL (80-110); HEMOLYSIS < 15 (0-50); Potassium 4.7 mmol/L (3.4-5.1); Sodium 137 mmol/L (137-145)
== END ==
PROVIDERS: Family Provider Physician Assistant; PCP Physician Assistant; Visit Provider Internal Medicine Cardiovascular Disease
DX: I10 Essential (primary) hypertension (principal)
CPT/HCPCS: 36415; 80048

== ENCOUNTER → 2020-07-19 11:15 | Outpatient (CLI) | payer MEDICARE, OTHER, SELFPAY ==
--- NOTE | 2020-07-19 11:18 | DI.RAD.S_ITS ---
PROCEDURE: XR CHEST 2V INDICATIONS: shortness of breath TECHNIQUE: 2 views of the chest were acquired. COMPARISON: [facility], , CHEST 1 VIEW, 09/30/2017, 13:45. FINDINGS: Surgical changes and devices: None. Lungs and pleura: Lungs are clear. No pleural effusions or pneumothorax. Mediastinum: Mediastinal contours are normal. Heart size is normal. Bones and chest wall: No suspicious bony abnormalities. Soft tissues appear unremarkable. IMPRESSION: No acute pulmonary process. Dictated by: Payton Phelan M.D. on 07/19/2020 at 11:30 Approved by: Payton Phelan M.D. on 07/19/2020 at 11:32
== END ==
PROVIDERS: Family Provider Physician Assistant; PCP Registered Nurse; Referring Provider Registered Nurse; Visit Provider Registered Nurse
DX: R06.02 Shortness of breath (principal)
CPT/HCPCS: 71046

== ENCOUNTER → 2020-08-20 07:21 | Outpatient (CLI) | payer MEDICARE, OTHER, SELFPAY ==
[2020-08-20 08:56] LABS: Add Manual Diff / Slide Review NO; Basophils Absolute Auto 100 /uL (0-100); Basophils Percent Auto 1.1 % (0-2); Eosinophils Absolute Auto 100 /uL (0-450); Eosinophils Percent Auto 1.9 % (2-4); Hematocrit 37.8 % (36-46); Hemoglobin 12.8 g/dL (12.0-16.0); Lymphocytes Absolute Auto 1800 /uL (1100-4500); Lymphocytes Percent Auto 33.6 % (25-40); Mean Corpuscular HGB Conc 33.9 % (30-36); Mean Corpuscular Hemoglobin 30.4 PG (26-34); Mean Corpuscular Volume 89.6 fL (80-100); Monocytes Absolute Auto 500 /uL (0-900); Monocytes Percent Auto 9.4 % (3-14); Neutrophils Absolute Auto 2900 /uL (1500-7000); Platelet Count 304 X10^3/uL (150-400); Red Blood Cell Count 4.21 X10^6/uL (4.0-5.2); Red Cell Distribution Width 12.4 % (11.6-14.8); White Blood Cell Count 5.4 X10^3/uL (4.5-11.0)
[2020-08-20 08:58] LABS: Appearance Urine UA CLEAR; Bilirubin Urine UA NEGATIVE (NEGATIVE); Glucose Urine UA NEGATIVE (Negative); Ketones Urine UA NEGATIVE (NEGATIVE); Leukocyte Esterase Urine UA TRACE (NEGATIVE); Nitrite Urine UA POSITIVE (Negative); Occult Blood Urine UA 1+ (Negative); Protein Urine UA NEGATIVE (Negative); Specific Gravity Urine UA <=1.005 (1.000-1.035); Urobilinogen Urine UA 0.2 E.U./dL (0.2)
[2020-08-20 09:09] LABS: pH Urine UA 5.5 (4.5-8.0)
[2020-08-20 09:10] LABS: Color Urine UA Dark Yellow
[2020-08-20 09:19] LABS: RBC Urine 0-1/HPF (0-5/HPF); WBC Urine 0-1/HPF (0-5/HPF)
[2020-08-20 09:20] LABS: Alanine Aminotransferase 7 IU/L (<35); Albumin 3.4 g/dL (3.5-5.0); Albumin Globulin Ratio 1.4 (1.0-2.8); Alkaline Phosphatase 66 U/L (38-126); Aspartate Aminotransferase 23 IU/L (14-36); BUN Creatinine Ratio 22.6 (6-22); Bacteria Urine Many (>30); Bilirubin Total 0.7 mg/dL (0.2-1.3); Blood Urea Nitrogen 19 mg/dL (7-17); Calcium 9.4 mg/dL (8.4-10.2); Carbon Dioxide 26 mmol/L (22-32); Chloride 110 mmol/L (98-107); Cholesterol 183 mg/dL (140-199); Culture Indicated Urine Specimen Cultured; Estimated Glomerular Filt Rate > 60.0 mL/min (>60); Globulin 2.4 g/dL (1.7-4.1); Glucose 91 mg/dL (80-110); HDL Cholesterol 75 mg/dL (40-60); HEMOLYSIS 18 (0-50); LDL Cholesterol Calculated 97 mg/dL (<100); Potassium 4.5 mmol/L (3.4-5.1); Sodium 138 mmol/L (137-145); Total Protein 5.8 g/dL (6.3-8.2); Triglycerides 56 mg/dL (35-150)
== END ==
PROVIDERS: Family Provider Physician Assistant; PCP Family Medicine; Referring Provider Registered Nurse; Visit Provider Registered Nurse
DX: E88.81 Metabolic syndrome and other insulin resistance (principal); I10 Essential (primary) hypertension; E78.5 Hyperlipidemia, unspecified
CPT/HCPCS: 36415; 80053; 80061; 81003; 81015; 85025; 87077; 87086; 87186

== ENCOUNTER → 2020-10-14 16:26 | Outpatient (CLI) | payer MEDICARE, OTHER, SELFPAY ==
[2020-10-14 16:47] LABS: Appearance Urine UA SL CLOUDY; Bilirubin Urine UA NEGATIVE (NEGATIVE); Color Urine UA ORANGE; Glucose Urine UA NEGATIVE (Negative); Ketones Urine UA TRACE (NEGATIVE); Leukocyte Esterase Urine UA 2+ (NEGATIVE); Nitrite Urine UA POSITIVE (Negative); Occult Blood Urine UA 1+ (Negative); Protein Urine UA NEGATIVE (Negative); Urobilinogen Urine UA 0.2 E.U./dL (0.2)
[2020-10-14 16:57] LABS: Amorphous Sediment Urine 1+; Bacteria Urine Many (>30); Culture Indicated Urine Specimen Cultured; Mucus Urine 1+ (Negative); RBC Urine 1-5/HPF (0-5/HPF); Squamous Epithelial Cell Urine 1-5 /HPF (0-5/HPF); WBC Urine 10-30/HPF (0-5/HPF)
== END ==
PROVIDERS: Family Provider Physician Assistant; PCP Family Medicine; Referring Provider Family Medicine; Visit Provider Family Medicine
DX: R30.0 Dysuria (principal)
CPT/HCPCS: 81001; 87077; 87086; 87186

== ENCOUNTER → 2020-11-02 11:11 | Outpatient (CLI) | payer MEDICARE, OTHER, SELFPAY ==
[2020-11-02 11:22] LABS: Bacteria Urine None Seen; RBC Urine None Seen (0-5/HPF); WBC Urine None Seen (0-5/HPF)
[2020-11-02 12:10] LABS: Appearance Urine UA CLEAR; Bilirubin Urine UA NEGATIVE (NEGATIVE); Color Urine UA YELLOW; Glucose Urine UA NEGATIVE (Negative); Ketones Urine UA NEGATIVE (NEGATIVE); Leukocyte Esterase Urine UA NEGATIVE (NEGATIVE); Nitrite Urine UA NEGATIVE (Negative); Occult Blood Urine UA TRACE-LYSED (Negative); Protein Urine UA NEGATIVE (Negative); Specific Gravity Urine UA <=1.005 (1.000-1.035); Urobilinogen Urine UA 0.2 E.U./dL (0.2)
[2020-11-02 12:13] LABS: pH Urine UA 5.5 (4.5-8.0)
[2020-11-02 12:30] LABS: Amorphous Sediment Urine 1+; Culture Indicated Urine Cult Not Indicated
== END ==
PROVIDERS: Family Provider Physician Assistant; PCP Family Medicine; Referring Provider Family Medicine; Visit Provider Family Medicine
DX: N39.0 Urinary tract infection, site not specified (principal)
CPT/HCPCS: 81001

== ENCOUNTER → 2020-12-12 12:54 | Outpatient (CLI) | payer MEDICARE, SELFPAY ==
[2020-12-12] MEDS: COVID-19 VACC #1, MRNA(MOD) 100 MCG/0.5 ML VIAL IM (13:07)
== END ==
PROVIDERS: Family Provider Physician Assistant; PCP Family Medicine; Visit Provider Internal Medicine
DX: Z23 Encounter for immunization (principal)
CPT/HCPCS: 0011A; 91301

== ENCOUNTER → 2020-12-24 07:13 | Outpatient (CLI) | payer OTHER, SELFPAY ==
[2020-12-24 08:58] LABS: Albumin 3.5 g/dL (3.5-5.0); BUN Creatinine Ratio 26.4 (6-22); Blood Urea Nitrogen 24 mg/dL (7-17); Calcium 9.4 mg/dL (8.4-10.2); Carbon Dioxide 28 mmol/L (22-32); Chloride 110 mmol/L (98-107); Estimated Glomerular Filt Rate 59.2 mL/min (>60); Glucose 90 mg/dL (80-110); HEMOLYSIS < 15 (0-50); Potassium 4.4 mmol/L (3.4-5.1); Sodium 137 mmol/L (137-145)
[2021-01-05 01:23] LABS: Renin Activity 3.533 ng/mL/hr (0.167-5.380)
== END ==
PROVIDERS: Family Provider Physician Assistant; PCP Family Medicine; Referring Provider Internal Medicine Nephrology; Visit Provider Internal Medicine Nephrology
DX: I70.1 Atherosclerosis of renal artery (principal)
CPT/HCPCS: 36415; 80069; 82088; 84244

== ENCOUNTER → 2021-01-09 12:33 | Outpatient (CLI) | payer MEDICARE, SELFPAY ==
[2021-01-09] MEDS: COVID-19 VACC #2, MRNA(MOD) 100 MCG/0.5 ML VIAL IM (12:46)
== END ==
PROVIDERS: Family Provider Physician Assistant; PCP Family Medicine; Visit Provider Internal Medicine
DX: Z23 Encounter for immunization (principal)
CPT/HCPCS: 0012A; 91301

== ENCOUNTER → 2021-01-27 07:16 | Outpatient (CLI) | payer OTHER, SELFPAY ==
[2021-01-27 08:24] LABS: Alanine Aminotransferase 5 IU/L (<35); Albumin 4.1 g/dL (3.5-5.0); Albumin Globulin Ratio 1.6 (1.0-2.8); Alkaline Phosphatase 64 U/L (38-126); Aspartate Aminotransferase 35 IU/L (14-36); BUN Creatinine Ratio 32.6 (6-22); Bilirubin Total 0.4 mg/dL (0.2-1.3); Blood Urea Nitrogen 28 mg/dL (7-17); Calcium 9.7 mg/dL (8.4-10.2); Carbon Dioxide 27 mmol/L (22-32); Chloride 108 mmol/L (98-107); Estimated Glomerular Filt Rate > 60.0 mL/min (>60); Globulin 2.6 g/dL (1.7-4.1); Glucose 112 mg/dL (80-110); HEMOLYSIS < 15 (0-50); Potassium 4.6 mmol/L (3.4-5.1); Sodium 137 mmol/L (137-145); Total Protein 6.7 g/dL (6.3-8.2)
== END ==
PROVIDERS: Family Provider Physician Assistant; PCP Family Medicine; Referring Provider Internal Medicine Nephrology; Visit Provider Internal Medicine Nephrology
DX: R09.89 Other specified symptoms and signs involving the circulatory and respiratory systems (principal)
CPT/HCPCS: 36415; 80053

== ENCOUNTER → 2021-01-29 11:26 | Outpatient (CLI) | payer OTHER, SELFPAY ==
--- NOTE | 2021-01-29 11:28 | DI.CT.S_ITS ---
PROCEDURE: CT ANGIO ABDOMEN INDICATIONS: Atherosclerosis of renal artery TECHNIQUE: After the administration of intravenous contrast, 2.5 mm sections acquired from the diaphragm to the iliac crests. 10 mm maximum intensity projection (MIP) coronal and sagittal reformats were then performed. For radiation dose reduction, the following was used: automated exposure control. COMPARISON: None. FINDINGS: Image quality: Excellent. Extravascular tissues: Lung bases are clear. Heart size is normal. Liver is normal in size and enhancement. Gallbladder is surgically absent . Biliary system is non dilated. Pancreas enhances normally. Spleen is normal in size and enhancement. No adrenal nodules. Kidneys are normal in size and enhancement, without hydronephrosis. Non-opacified bowel loops demonstrate normal wall thickness and caliber. No free fluid or air. No retroperitoneal or mesenteric adenopathy. No ventral hernias. No suspicious bony abnormalities. No vertebral body compression fractures. Abdominal aorta: Mild diffuse calcific plaque causing minimal diffuse stenosis. No aneurysm, dissection, or significant stenosis. Mesenteric arteries: Conventional mesenteric anatomy. Mild diffuse stenosis within the celiac artery, which demonstrates a beaded configuration. Superior mesenteric artery demonstrates mild multifocal stenosis, and demonstrates a beaded configuration. Inferior mesenteric artery is patent. Renal arteries: Single bilateral renal arteries are present . There is a beaded configuration of the bilateral renal arteries. Multifocal mild bilateral renal artery stenosis. IMPRESSION: 1. There is a beaded configuration of the renal arteries, as well as the celiac and superior mesenteric arteries, which demonstrate mild multifocal stenoses. This finding is suggestive of fibromuscular dysplasia. Dictated by: Florencia Terry M.D. on 01/29/2021 at 11:58 Approved by: Florencia Terry M.D. on 01/29/2021 at 12:04
== END ==
PROVIDERS: Family Provider Physician Assistant; PCP Family Medicine; Referring Provider Internal Medicine Nephrology; Visit Provider Internal Medicine Nephrology
DX: I35.0 Nonrheumatic aortic (valve) stenosis (principal); I70.1 Atherosclerosis of renal artery
CPT/HCPCS: 74175

== ENCOUNTER → 2021-03-04 14:17 | Outpatient (CLI) | payer OTHER, SELFPAY ==
[2021-03-04 14:52] LABS: Alanine Aminotransferase 6 IU/L (<35); Albumin 3.7 g/dL (3.5-5.0); Albumin Globulin Ratio 1.6 (1.0-2.8); Alkaline Phosphatase 55 U/L (38-126); Aspartate Aminotransferase 28 IU/L (14-36); Bilirubin Total 0.7 mg/dL (0.2-1.3); Blood Urea Nitrogen 19 mg/dL (7-17); Calcium 9.5 mg/dL (8.4-10.2); Carbon Dioxide 27 mmol/L (22-32); Chloride 107 mmol/L (98-107); Estimated Glomerular Filt Rate 53.1 mL/min (>60); Globulin 2.3 g/dL (1.7-4.1); Glucose 123 mg/dL (80-110); HEMOLYSIS < 15 (0-50); Sodium 137 mmol/L (137-145)
== END ==
PROVIDERS: Family Provider Physician Assistant; PCP Family Medicine; Referring Provider Internal Medicine Nephrology; Visit Provider Internal Medicine Nephrology
DX: I77.3 Arterial fibromuscular dysplasia (principal)
CPT/HCPCS: 36415; 80053

== ENCOUNTER → 2021-03-05 13:41 | Outpatient (CLI) | payer OTHER, SELFPAY ==
--- NOTE | 2021-03-05 13:43 | DI.CT.S_ITS ---
PROCEDURE: CT ANGIO HEAD AND NECK INDICATIONS: FIBROMUSCULAR DYSPLASIA TECHNIQUE: Pre-contrast 4.5 mm thick sections acquired from the foramen magnum to the vertex. After the administration of intravenous contrast, 1 mm thick sections acquired from the aortic arch through the [place]. Post-contrast 4.5 mm thick sections then re-acquired from the foramen magnum to the vertex. 3-dimensional jkzrnqd-ufarhaygg-ewczobqfpc (MIP) and/or volume rendering reformats were acquired of the central intracranial vasculature and neck separately. COMPARISON: CT brain 10/15/2018 FINDINGS: Image quality: Excellent. BRAIN: CSF spaces: Ventricles are normal in size and shape. Basal cisterns are patent. No extra-axial fluid collections. Brain: No midline shift. No intracranial bleeds or masses. Morel-white matter interface appears intact. Mild atrophy and multifocal chronic ischemic change noted in the deep white matter.626 Skull and face: Calvarium and facial bones appear intact, without suspicious lesions. Orbits appear normal. Bilateral intra-ocular lens replacements are noted. Sinuses: Sinuses and mastoids are clear. HEAD CT ANGIOGRAPHY: Anterior circulation: Intracranial internal carotid arteries are normal in size and flow. Mild calcified atherosclerotic plaque noted involving the cavernous portions of both internal carotid arteries. The flow within the paired anterior cerebral arteries is normal and symmetric. The flow within the middle cerebral arteries is normal and symmetric. The anterior communicating artery is seen. No aneurysms are seen. Posterior circulation: Visualized portions of the vertebral arteries demonstrate normal caliber, and join to form a normal appearing basilar artery. Flow within the posterior cerebral arteries is normal and symmetric. No aneurysms are seen. NECK CT ANGIOGRAPHY: Carotid system: The great vessels demonstrate a conventional anatomy as they arise from the aortic arch. The origins of the common carotid arteries appear patent. The common carotid arteries demonstrate normal caliber and courses. Atherosclerotic calcified plaque in the proximal right internal carotid artery results in 20 percent stenosis utilizing NASCET criteria. No stenosis noted on the left. Posterior circulation: The origins of the vertebral arteries both appear widely patent. The more superior extracranial portions of both vertebral arteries also demonstrate normal courses and calibers. They join to form a normal appearing basilar artery. Left vertebral artery dominance. Soft tissues: Visualized neck soft tissues demonstrate no suspicious abnormalities. In the right upper lobe, there are 2 separate peripheral nodules measuring 6 mm and less. Nipple pulmonary scarring noted as well. Bones: No suspicious bony lesions. Visualized cervical spine appears normally aligned. There is well-healed interbody fusion C4-5 and C5-6 and severe degenerative disc disease at C6-7. IMPRESSION: 1. No CT evidence of fibromuscular dysplasia in the head and neck. 2. Mild atherosclerotic plaque results in 20% right ICA stenosis. 3. Multilevel cervical interbody fusion without instrumentation. Any quantitative measurements of stenosis were performed using NASCET criteria. Dictated by: Saurav Lagos M.D. on 03/05/2021 at 14:36 Approved by: Saurav Lagos M.D. on 03/05/2021 at 14:57 Surveillance Guidelines of Incidental Pulmonary Nodules: Fleischner Society 2017 <6 mm Low risk: none. High risk: optional 12 month follow-up. If stable, then stop. 6-8 mm Low risk: 6-[address] 18-24 month. High risk: 6-12 month and 18-24 mos. >8 mm Low and High risk: CT 3 month, and/or PET/CT, and/or biopsy Radiology 2017;284(1):228-243
== END ==
PROVIDERS: Family Provider Physician Assistant; PCP Family Medicine; Referring Provider Internal Medicine Nephrology; Visit Provider Internal Medicine Nephrology
DX: I77.3 Arterial fibromuscular dysplasia (principal); I65.21 Occlusion and stenosis of right carotid artery
CPT/HCPCS: 70496; 70498; Q9967

== ENCOUNTER → 2021-03-24 16:28 | Outpatient (CLI) | payer OTHER, SELFPAY ==
--- NOTE | 2021-03-24 16:29 | DI.RAD.S_ITS ---
PROCEDURE: XR KNEE LT 3V INDICATIONS: fall and left knee pain TECHNIQUE: 3 views of the knee were acquired. COMPARISON: None. FINDINGS: Bones: No fractures or dislocations. No suspicious bony lesions. Moderate medial and lateral joint space narrowing and small joint effusion noted. Marked oval bone mineralization present. Soft tissues: No joint effusion. No suspicious soft tissue calcifications. IMPRESSION: Moderate joint space narrowing and small joint effusion. No fracture or foreign body. Dictated by: Saurav Lagos M.D. on 03/24/2021 at 16:24 Approved by: Saurav Lagos M.D. on 03/24/2021 at 16:27
== END ==
PROVIDERS: Family Provider Physician Assistant; PCP Family Medicine; Referring Provider Family Medicine; Visit Provider Family Medicine
DX: M25.562 Pain in left knee (principal); M25.462 Effusion, left knee; M21.379 Foot drop, unspecified foot
CPT/HCPCS: 73562

== ENCOUNTER 2021-03-25 20:26 | Emergency (ER) | payer OTHER, SELFPAY ==
[2021-03-25 20:28] VITALS: BP 162/89; PULSE 86; RESP 16; TEMP 36.9; O2SAT 99; BMI 28.1
--- NOTE | 2021-03-25 20:30 | DI.RAD.S_ITS ---
PROCEDURE: XR ANKLE LT MIN 3V INDICATIONS: fall TECHNIQUE: 3 views of the ankle were acquired. COMPARISON: [facility], CR, XR ANKLE LT MIN 3V, 03/13/2019, 14:59. FINDINGS: Bones: There is a mildly displaced fracture through the base of the medial malleolus extending to the ankle mortise. There is associated slight widening of the ankle mortise medially. A mildly displaced fracture of the lateral malleolus is also present extending to the distal tibial fibular syndesmosis. There is a suspected minimally displaced fracture of the posterior malleolus. The visualized foot demonstrates 2 surgical screws within the 1st metatarsal. Soft tissues: Periarticular soft tissue swelling most prominent laterally. There is a tibiotalar joint effusion. Achilles tendon appears intact. IMPRESSION: 1. Trimalleolar fracture as described. 2. Slight widening of the medial ankle mortise. Dictated by: Samir Ko M.D. on 03/25/2021 at 22:35 Approved by: Samir Ko M.D. on 03/25/2021 at 22:37
--- NOTE | 2021-03-25 20:41 | PC.NURSE ---
She has a strong DP pulse fleft foot with no loss of any sensation.
[2021-03-25 21:48] VITALS: BP 165/80; PULSE 80; RESP 18; O2SAT 97
--- NOTE | 2021-03-25 23:23 | ED_ITS ---
HPI - Fall General Chief Complaint: Fall Stated Complaint: left foot injury Time Seen by Provider: 03/25/21 20:43 History of Present Illness HPI Narrative: 80-year-old woman with a history of Parkinson's disease and hypertension presents after a mechanical fall with injury and swelling to the left ankle. She fell approximately a week ago and injured her left knee. The knee itself has felt unstable and she is scheduled for MRI to follow-up later this week. She was standing today and inadvertently turned with weight landing on her left leg, the leg gave out and she fell on her left ankle. She denies fever, cough, chills, chest pain, palpitations, dyspnea, orthopnea, abdominal pa in, vomiting, diarrhea, dysuria. She notes that her baseline Parkinson's symptoms are stable. She has a history of back surgery 15 years ago with paresthesia to the left ankle and foot so the current injury is not particularly painful for her. She does have a drop foot on the left side. Related Data Home Medications Medication Instructions Recorded Confirmed ASPIRIN (#ASPIRIN) 325 mg PO PRN #0 05/26/11 09/19/20 calcium carbonate [Tums Ultra] 1,000 mg PO PRN PRN #0 10/12/16 09/19/20 Previous Rx's Medication Instructions Recorded Disabled Parking Permit ea #1 10/12/16 spironolactone 25 mg tablet 25 mg PO DAILY PRN 30 Days #30 tab 07/19/20 carbidopa 25 mg-levodopa 100 mg See Rx Instructions PO TID #90 tab 12/05/20 tablet carvedilol 12.5 mg tablet 6.25 mg PO BID #60 tab 12/05/20 clonidine HCl 0.1 mg tablet 0.1 mg PO QDAY PRN #90 tab 12/05/20 entacapone 200 mg tablet 200 mg PO TID #90 tab 12/05/20 ramipril 10 mg capsule 10 mg PO DAILY #90 cap 12/05/20 desonide 0.05 % topical cream 1 applic TOPICAL BID PRN #15 g 03/20/21 Allergies Allergy/AdvReac Type Severity Reaction Status Date / Time aluminum Allergy Severe (Antiperspirants) Verified 03/20/21 15:04 Rash propranolol Allergy Severe lips and Verified 03/20/21 15:04 tongue swelling adhesive Allergy Mild BLISTERS Verified 03/20/21 15:04 Influenza Virus Vaccines AdvReac Severe SWOLLEN Verified 03/20/21 15:04 [INFLUENZA VIRUS VACCINES] THROAT, TINGLING LIPS AND TONGUE amlodipine AdvReac Intermediate edema of Verified 03/20/21 15:04 ankles/feet Review of Systems Review of Systems Narrative: Remainder of complete review of systems is otherwise unremarkable except for that included in the HPI. Patient History Medical History Cervical vertebral fusion syndrome Chicken pox (~1941) Chronic venous insufficiency Colon polyps (~2009) Drop foot gait Essential hypertension (01/18/06) Fibroids (~1995) Fractures History of urinary incontinence (~2019) Hyperlipidemia Labile hypertension 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 Mumps (~1940) Obstructive sleep apnea syndrome (04/12/14) Osteopenia of left hip Osteopenia of right hip Parkinson's disease (~2005) Polio (~1945) Screening for malignant neoplasm of colon Skin cancer of chest, excluding breast (~2012) Tinnitus (~1999) Vertigo (~1967) Surgical History Anesthesia Cancer of skin of chest (~2012) H/O right hemicolectomy H/O: hysterectomy (~1997) History of appendectomy (~1953) History of bladder surgery (~1997) History of bunionectomy (~2002) History of cataract removal with insertion of prosthetic lens History of lumbar surgery (~2004) History of tonsillectomy (~194) Hx of cholecystectomy (~1997) S/P cervical spinal fusion (~1979) Skin cancer of face (~2016) Family History Father Brain bleed Mother Hypertension History of heart disease Brother No problems noted. Sister Breast cancer Hypertension Grandfather Cancer Social History Smoking Status: Never smoker second hand exposure: No alcohol intake: current (Wine or mixed drinks, once or twice a week) substance use type: does not use Smoking Status: Never smoker alcohol intake frequency: a few times a week Substance Use Type: does not use Exam Narrative Exam Narrative: General: Alert appropriate in no acute distress Respiratory: Able to speak in full sentences, no obvious respiratory distress Skin: No obvious rashes, warm and dry Neurologic: Grossly intact no obvious asymmetries or abnormalities Psych: appropriate insight and affect, cooperative Extremity: Minor bruises to both knees approximately a week old. Minor effusion to the left knee. Left ankle with swelling bilaterally in hematoma. Range of motion is significantly limited but it is hard to tell how much of that predates the fall. Again minimal sensation to the foot and minimal pain. Initial Vital Signs Initial Vital Signs: Vital Signs Temperature 98.4 F 03/25/21 20:28 Pulse Rate 86 03/25/21 20:28 Respiratory Rate 16 03/25/21 20:28 Blood Pressure 162/89 H 03/25/21 20:28 Pulse Oximetry 99 03/25/21 20:28 Course Orders Ordered: ED Orders 03/25/21 20:30 XR ankle LT min 3V Stat Vital Signs Vital signs: Vital Signs - 8 hr 03/26/21 00:22 Pulse Rate 75 Blood Pressure 143/65 H Pulse Oximetry 95 MDM - Fall Medical Records Attestation: I reviewed the patient's medical records. Imaging Data X-ray left ankle: Radiologist's Impression: FINDINGS: Bones: There is a mildly displaced fracture through the base of the medial malleolus extending to the ankle mortise. There is associated slight widening of the ankle mortise medially. A mildly displaced fracture of the lateral malleolus is also present extending to the distal tibial fibular syndesmosis. There is a suspected minimally displaced fracture of the posterior malleolus. The visualized foot demonstrates 2 surgical screws within the 1st metatarsal. Soft tissues: Periarticular soft tissue swelling most prominent laterally. There is a tibiotalar joint effusion. Achilles tendon appears intact. IMPRESSION: 1. Trimalleolar fracture as described. 2. Slight widening of the medial ankle mortise. Dictated by: Samir Ko M.D. on 03/25/2021 at 22:35 MDM Narrative Medical decision making narrative: 11:[address] Aguilar, orthopedist senior recruitment consultant. Recommends posterior splint with stirrup splint. Nonweightbearing. Follow-up in the office with request to talk with Dr. Salazar as she is the foot and ankle specialist. Due to pre-existing neuropathy pain control does not appear to be an issue. Patient states that she does have walkers available at home and she and her daughter feel that they will be able to safely maneuver at home. She has questions regarding follow-up with the MRI scheduled in the next couple of days. I encouraged her to go ahead and follow through with that. If she does need surgical intervention both the knee in the ankle can perhaps be addressed si multaneously. At this point she is safe for home discharge Discharge Plan Departure Patient Disposition: Home Clinical Impression: Fracture of distal end of fibula Qualifiers: Encounter type: initial encounter Fracture type: closed Fracture morphology: other fracture Laterality: left Qualified Code(s): S82.832A - Other fracture of upper and lower end of left fibula, initial encounter for closed fracture Closed fracture of posterior malleolus of left tibia Qualifiers: Encounter type: initial encounter Qualified Code(s): S82.392A - Other fracture of lower end of left tibia, initial encounter for closed fracture Instructions: DI for Ankle Fracture Activity Restrictions/Additional Instructions: Thank you for coming in today You do have a bad ankle fracture and are going to need surgery. The swelling needs to go down a bit so that the surgery is successful as poss ible. You have been placed in a cast here in the emergency department and need to keep this in place. Please do not use this foot or leg at all. Please contact [facility] at [phone] and asked to schedule an appointment with Dr. Salazar, their foot and ankle specialist. Keep the leg elevated as much as possible to help with swelling. Ice can also help with swelling. Tylenol should be adequate for pain given the fact that you have minimal sensation to this area. If you find that things are worse or your developing new symptoms, please return to the ER Prescriptions: No Action ASPIRIN (#ASPIRIN) 325 mg PO PRN Qty: 0 RF: 0 calcium carbonate [Tums Ultra] 1,000 MG tablet,chewable 1,000 mg PO PRN PRNQty: 0 RF: 0 Disabled Parking Permit Qty: 1 RF: 0 carbidopa-levodopa 25-100 mg tablet See Rx Instructions PO TID Qty: 90 RF: 3 carvedilol 12.5 mg tablet 6.25 mg PO BID Qty: 60 RF: 3 clonidine HCl 0.1 mg tablet 0.1 mg PO QDAY PRN (Reason: hypertension (SBP >160)) Qty: 90 RF: 0 entacapone 200 mg tablet 200 mg PO TID Qty: 90 RF: 3 ramipril 10 mg capsule 10 mg PO DAILY Qty: 90 RF: 0 spironolactone 25 mg tablet 25 mg PO DAILY PRN (Reason: edema; HTN) 30 Days Qty: 30 RF: 1 desonide 0.05 % cream 1 applic topical BID PRN (Reason: skin rash) Qty: 15 RF: 0 Referrals: Morgan Sims MD [Primary Care Provider] -
[2021-03-26 00:22] VITALS: BP 143/65; PULSE 75; O2SAT 95
--- NOTE | 2021-03-26 01:18 | PC.NURSE ---
short leg orthoglass splint applied per order, distal cms intact after splinting
== END 2021-03-26 01:17 | disposition home or self-care (01) ==
PROVIDERS: Emergency Provider Emergency Medicine; Family Provider Physician Assistant; PCP Family Medicine
DX: S82.832A Other fracture of upper and lower end of left fibula, initial encounter for closed fracture (principal); S82.392A Other fracture of lower end of left tibia, initial encounter for closed fracture; W19.XXXA Unspecified fall, initial encounter
CPT/HCPCS: 73610; 99283

== ENCOUNTER → 2021-04-01 13:12 | Outpatient (CLI) | payer OTHER, SELFPAY ==
--- NOTE | 2021-04-01 13:13 | DI.MRI.S_ITS ---
PROCEDURE: MR KNEE LT WO CON INDICATIONS: left knee pain, fall, giving way, medial joint carton liner TECHNIQUE: Noncontrast sagittal PD fast spin echo and T2 fast spin echo with fat saturation, sagittal 3-D FLASH with fat saturation; coronal T1 spin echo and PD fast spin echo with fat saturation, and axial PD fast spin echo with fat saturation through the knee. COMPARISON: [facility], CR, XR KNEE LT 3V, 03/24/2021, 16:30. FINDINGS: Image quality: Excellent. Menisci: Complex oblique tear involving body and posterior horn of medial meniscus is seen extending to both superior and inferior articulating surfaces. There is no evidence of focal lateral meniscal tear. The meniscal root ligaments appear intact. Cruciate ligaments: The anterior and posterior cruciate ligaments appear intact. Medial structures: Low-grade MCL sprain is seen. The posterior oblique ligament, semimembranosus tendon insertions, oblique popliteal ligament, and meniscocapsular junction appear intact. Visualized portions of the pes anserinus tendons appear normal. No abnormal bursal fluid. Lateral structures: The lateral collateral ligament, long and short heads of the biceps femoris tendon appear intact. The popliteus tendon appears normal; the popliteofibular ligament appears intact. The posterosuperior and anteroinferior popliteomeniscal fascicles appear intact. The arcuate and fabellofibular ligaments appear intact, on either side of the lateral inferior geniculate artery. Iliotibial band appears normal. Anterior structures: The quadriceps and patellar tendons appear intact. Patellar alignment is normal. No femoral trochlear dysplasia or ventral trochlear prominence. No edema in the infrapatellar fat pad. Bones and cartilage: Extensive marrow edema involving posterior and medial portion of proximal tibia is seen extending to medial tibial plateau. Nondisplaced fracture involving posterior medial tibial plateau is seen without depression. Bsbr-[id number] tricompartmental osteoarthritis and chondromalacia is seen. Mild edema/small osteochondral lesions are noted involving lateral portion of posterior patella near apex. Joint space: There is moderate amount of joint fluid. There is a small popliteal cyst. Normal appearing synovial plicae are incidentally noted. IMPRESSION: 1. Nondisplaced fracture involving posterior medial portion of proximal tibia extending to posterior aspect of medial tibial plateau with extensive edema. No depression is seen. No other fracture or dislocation. 2. 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 Moderate amount of joint effusion. Small popliteal cyst. 3. Subtle complex tear involving body and posterior horn of medial meniscus extending to both superior and inferior articulating surfaces. No focal lateral meniscal tear. 4. Cruciate ligaments are intact. Low-grade MCL sprain. Dictated by: Bharath Cain M.D. on 04/01/2021 at 15:20 Approved by: Bharath Cain M.D. on 04/01/2021 at 15:49
== END ==
PROVIDERS: PCP Family Medicine; Referring Provider Family Medicine; Visit Provider Family Medicine
DX: S82.145A Nondisplaced bicondylar fracture of left tibia, initial encounter for closed fracture (principal); M25.562 Pain in left knee; M21.379 Foot drop, unspecified foot; S83.232A Complex tear of medial meniscus, current injury, left knee, initial encounter; S83.412A Sprain of medial collateral ligament of left knee, initial encounter; M17.12 Unilateral primary osteoarthritis, left knee; M94.262 Chondromalacia, left knee; M25.462 Effusion, left knee; M71.22 Synovial cyst of popliteal space [Baker], left knee
CPT/HCPCS: 73721

== ENCOUNTER → 2021-04-02 10:06 | Outpatient (CLI) | payer OTHER, SELFPAY ==
[2021-04-02 11:14] LABS: COVID19 -Nasal RAPID Negative (Negative)
== END ==
PROVIDERS: PCP Family Medicine; Visit Provider Physician Assistant
DX: Z01.812 Encounter for preprocedural laboratory examination (principal); Z20.822 Contact with and (suspected) exposure to COVID-19
CPT/HCPCS: 87635

== ENCOUNTER 2021-04-04 06:13 | Day surgery (SDC) | payer OTHER, SELFPAY ==
[2021-04-02 15:11] VITALS: BMI 20.9
[2021-04-04] VITALS (7 sets, daily range): BP systolic 98–161; BP diastolic 51–89; PULSE 64–82; RESP 10–18; TEMP 35.7–36.4; O2SAT 94–100; BMI 20.9
--- NOTE | 2021-04-04 | DI.RAD.S_ITS ---
PROCEDURE: XR ANKLE LT MIN 3V INDICATIONS: ORIF LEFT ANKLE TECHNIQUE: 3 views of the ankle were acquired. COMPARISON: [facility], CR, XR ANKLE LT MIN 3V, 03/25/2021, 20:33. FINDINGS: Spot fluoroscopic intraoperative images demonstrating internal fixation of the distal fibula and medial malleolus with screw and prashanth fixation. There is a single syndesmotic fixation screw. Expected alignment. Dictated by: Desean Zamora M.D. on 04/04/2021 at 13:02 Approved by: Desean Zamora M.D. on 04/04/2021 at 13:03
[2021-04-04] MEDS: LACTATED RINGERS 1,000 ML 42 ML IV (07:20)
--- NOTE | 2021-04-04 07:31 | PM.PREOP ---
Pre-operative Note COVID-19 COVID-19 status: Negative Interval Note History & Physical reviewed/Exam performed by Physician: Yes Changes to H&P: No
[2021-04-04] MEDS: CEFAZOLIN 1 GM VIAL 2 GM IV (08:02)
--- NOTE | 2021-04-04 08:17 | SUR.OPER ---
Supine on padded OR bed, head on pillow, arms secured on padded arm boards at <90 degrees abduction, gel pads under bilateral arms, legs uncrossed, safety belt at hips, bump under left hip, bump towels under left leg. Gel pad under right heel, Tape over blanket over right lower leg. left leg in control of the surgeon.
[2021-04-04] MEDS: BUPIVACAINE 0.5% W/ EPI (PF) 30 ML VIAL INJ (08:35)
--- NOTE | 2021-04-04 09:41 | P.OP_ITS ---
Operative Date/Time/Diagnoses Date of procedure: 04/04/21 Time of procedure: 08:10 Pre-op diagnosis: 1. Left ankle trimalleolar fracture, closed 2. Equinus contracture left ankle 3. Chronic left footdrop 4. Nondisplaced left posterior medial tibial plateau fracture, closed 5. Complex medial meniscus tear left knee 6. Parkinson's disease Post-op diagnosis: same Procedure & Clinicians Procedure: 1. Open reduction internal fixation trimalleolar ankle fracture left without fixation of posterior malleolus CPT code 18303 2. Open reduction internal fixation syndesmosis CPT code 84982 3. Tendo-Achilles lengthening CPT code 06877-77 4. closed treatment of left tibial plateau fracture without manipulation CPT code 83130-04 Same procedure as scheduled: Yes Indications: Gloria is an 80-year-old female that sustained a left ankle next knee injury she sustained a trimalleolar ankle fracture and nondisplaced medial left tibial plateau fracture. She has been indicated for operative fixation of her unstable ankle injury. She has been indicated for non operative treatment of her nondisplaced tibial plateau fracture. She has a history of a chronic footdrop after a back injury and has an Equinus contracture. we discussed tendo-Achilles lengthening to aid ambulation and bracing. She uses a walker for ambulation has Parkinson's disease. The risks and benefits of the procedure have been discussed with the patient even opportunity to ask questions. The risks of surgery include but are not limited to infection, malunion, nonunion, persistence of pain, damage to nerves and blood vessels, posttraumatic arthritis, DVT, PE, cardiopulmonary complications and . The patient expressed a thorough understanding of the risks and benefits of surgery and has elected to proceed. Consent was signed in the office today. to use aspirin for DVT prophylaxis postoperatively. discussed calcium and vitamin-D for bone hea lth. She does not smoke or use alcohol. Surgeon: Vandana Cobos Click Yes if Unassisted: Yes Anesthesia Type: General and Local Operative Notes Findings: Mildly displaced lateral malleolus fracture stabilized with an Arthrex 3.0 x 130 fibulock nail small posterior malleolus fracture treated non operatively. Syndesmosis instability addressed with a 50 mm 3.5 cortical screw interlocking through the nail minimally displaced medial malleolus fracture stabilized with 2 x 4.0 cannulated screws from the Arthrex set Closure Type: primary Specimen(s): none sent Prosthetic devices, grafts, tissues, transplants, or devices: Arthrex 3.0 x 130 mm fibula locked nail- with a 2.7 and 3.5 interlocking screw 3.5 mm syndesmotic screw 4.0 cannulated screws Estimated Blood Loss (mL): 10 Blood products transfused: none Tourniquet time (min): 51 Procedure in detail: Patient was seen in the preoperative area the site of surgery marked informed consent confirmed. The patient back to the operating room by the anesthesia team positioned supine on the operative table. General anesthesia was administered. The left lower extremity was inspected the splint was removed. There was mild swelling but much improved from in clinic earlier and the fracture blisters were resolving laterally and not tense. However, Due to the location of these at the fx site and the elderly nature of the patient's fragile skin, a minimally invasive technique and implant system was indicated to minimize risk of soft tissue complications in this patient, therefore the decision was made to utilize a intramedullary nail for the fibula fixation of for length and alignment and to provide options for additional syndesmotic stabilization. The leg was also examined and the patient had a as severe equinus contracture with maximal dorsiflexion approximately -5 degrees Unchanged with knee flexion. and decision was made for a tendo-Achilles lengthening to a her bracing and positioning postoperatively. The left lower extremity was prepped and draped in the standard sterile fashion. A formal time-out procedure was performed confirming the patient's side and site of surgery administration of appropriate preoperative antibiotics. All were in agreement. Implants were in the room and accounted for. An Esmarch was used for exsanguination the tourniquet was raised on the thigh to 250 mmHg. Tendo-Achilles lengthening: The leg was held up with pressure in dorsiflexion on the foot 3 imelda sections of the Achilles tendon were made at 2 cm interval along the Achilles tendon with the most distal and proximal directed medially and the central incision directed laterally for a triple imelda section lengthening. There was a good audible stretch with this I was able to get the patient to approximately 10-15? of dorsiflexion easily with knee extension. Next attention was turned to the fibula fracture: C-arm was brought in guidewire was used to establish the trajectory of the nail a small incision about a cm distal to the tip of the fibula was then made and blunt dissection down to the level of the bone. Guidewire was then inserted on oxalate into the fibula and intramedullary canal. Once appropriate trajectory was obtained this was then over drilled with the opening drill. The flexible wire was then placed and advanced farther in the fibula canal. This was overdrilled with the appropriate drill and a 3.0 times 130 mm nail was selected and inserted. Length and alignment of the fibula was maintained with fibula below nail insertion. This was inserted to the appropriate depth and checked with the guide. once alignment was Satisfactory, the proximal talons were deployed. Next the interlocking screws were placed distally. First the distal screw was stuck tight on the screwdriver so this 2 7 screw was replaced with a 3.5 x 14 mmscrew distally. the next interlocking distal screw was a 2.7x14 mm screw. medial malleolus fixation: then attention was turned to the medial malleolus. Alignment was appropriate intraoperatively with well reduced medial malleolus fracture therefore a minimal percutaneous fixation was completed with small incisions distal to the malleolus for guidewires for the 4-0 cannulated screws were inserted across the fracture. And 2 4.0 cannulated screws 40 and 44 mm were inserted providing excellent fixation of the medial malleolus. Attention was then turned to the syndesmosis. There was a small posterior malleolus fracture that was felt small enough to treat closed but this did demonstrate some has syndesmotic widening on a stress examination therefore syndesmotic fixation was completed the reduction was held and then fixed with a 3.5 cortical screw measuring 50 mm interlocking through the nail in the distal syndesmotic hole. Excellent mortise alignment was obtained final fluoroscopic x-rays with AP mortise and lateral demonstrated appropriate alignment.. Tourniquet was released hemostasis was achieved Wounds were irrigated and the incisions were closed with 4-0 Monocryl and 3-0 nylon. 20 cc of local anesthetic was used. A well-padded bulky Villegas style splint was placed in neutral dorsiflexion. Patient was woken from anesthesia and taken to the recovery room in good condition. There no immediate complications from this procedure. Complications: none Post-operative Condition: stable Disposition: PACU Plan for aftercare: nonweightbearing left lower extremity. Elevate above the heart level strictly for the 1st 2 weeks postoperatively. Start aspirin 325 mg daily for DVT prophylaxis. Follow-up in 2 weeks for suture removal.
[2021-04-04] MEDS: ACETAMINOPHEN 325 MG TABLET 650 MG PO (09:43)
--- NOTE | 2021-04-04 09:59 | SUR.PHASEI ---
Received to PACU after general anesthesia. Airway patent, self maintained. Report received from Dr Garg and CHERELLE Davila.
[2021-04-04] MEDS: OXYCODONE IR 5 MG TABLET PO (10:32)
--- NOTE | 2021-04-04 10:46 | SUR.PHASEII ---
RN sat down with daughter and pt and went over her discharge instructions at length. pt states she understands discharge instructions Pt eating pudding and drinking gingerale.
--- NOTE | 2021-04-04 11:27 | SUR.PHASEII ---
pt in wheel chair. Pt states she feels much better pain is at a level 2. Daughter is bringing car around.
== END 2021-04-04 11:28 | disposition home or self-care (01) ==
PROVIDERS: PCP Family Medicine; Referring Provider Orthopaedic Surgery Foot and Ankle Surgery; Visit Provider Orthopaedic Surgery Foot and Ankle Surgery
PROC: (CPT 27822; principal; 2021-04-04 07:45)
DX: S82.852A Displaced trimalleolar fracture of left lower leg, initial encounter for closed fracture (principal); S82.145A Nondisplaced bicondylar fracture of left tibia, initial encounter for closed fracture; S83.232A Complex tear of medial meniscus, current injury, left knee, initial encounter; M24.572 Contracture, left ankle; M21.372 Foot drop, left foot; W19.XXXA Unspecified fall, initial encounter; Z91.81 History of falling; I10 Essential (primary) hypertension; G20 Parkinson's disease; G47.30 Sleep apnea, unspecified
CPT/HCPCS: 27822; 27829; 27685; 73610; 76000; J0690; J1100; J2405; J2704; J3010

== ENCOUNTER 2021-07-04 13:45 | Outpatient (RCR) | payer OTHER, SELFPAY ==
--- NOTE | 2021-06-03 15:59 | PT.OIE ---
Current Diagnoses Foot drop, left foot (06/03/21) Displaced bicondylar fracture of left tibia, initial encounter for closed fracture (06/03/21) Displaced trimalleolar fracture of left lower leg, initial encounter for closed fracture (06/03/21) Complex tear of medial meniscus, current injury, left knee, initial encounter (06/03/21) Past Medical History (Last Reviewed 03/26/21 @ 06:31 by Kamila Jarrett MD) Cervical vertebral fusion syndrome Chicken pox (~1941) Chronic venous insufficiency Colon polyps (~2009) Drop foot gait Essential hypertension (01/18/06) Fibroids (~1995) Fractures H/O right hemicolectomy H/O: hysterectomy (~1997) History of appendectomy (~1953) History of bladder surgery (~1997) History of bunionectomy (~2002) History of cataract removal with insertion of prosthetic lens History of lumbar surgery (~2004) History of tonsillectomy (~1943) History of urinary incontinence (~2019) Hx of cholecystectomy (~1997) Hyperlipidemia Labile hypertension 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 Mumps (~1940) Obstructive sleep apnea syndrome (04/12/14) Osteopenia of left hip Osteopenia of right hip Parkinson's disease (~2005) Polio (~194) S/P cervical spinal fusion (~1979) Screening for malignant neoplasm of colon Skin cancer of chest, excluding breast (~2012) Tinnitus (~2000) Vertigo (~1968) Past Surgical History (Last Reviewed 03/26/21 @ 06:31 by Kamila Jarrett MD) Anesthesia Cancer of skin of chest (~2012) H/O right hemicolectomy H/O: hysterectomy (~1997) History of appendectomy (~1953) History of bladder surgery (~1997) History of bunionectomy (~2002) History of cataract removal with insertion of prosthetic lens History of lumbar surgery (~2004) History of tonsillectomy (~1943) Hx of cholecystectomy (~1997) S/P cervical spinal fusion (~1979) Skin cancer of face (~2016) Visit Care Team Role Provider Type Morgan Sims MD Primary Care Provider Physician Specialty: Family Practice Address: [address] [place] [address], [id number] Email: [email or web address] Vandana Cobos MD Attending Provider Physician Referring Provider Specialty: Orthopedics Address: [address] [place] [address], [place], [address] Email: [email or web address] Physical Therapy Initial Evaluation PT-OP-A Visit Information Start: 06/03/21 07:16 Freq: Status: Active Protocol: Document 06/03/21 12:14 MB (Rec: 06/03/21 12:39 MB [id number]) Out-Patient Physical Therapy Visit Information Visit Information Visit Type Initial Evaluation Visit Note [facility] [place] [employer] Visit Start Time 12:14 Visit Stop Time 12:59 Total Visit Minutes 45 Visit Number 1 Evaluation Information Evaluation Date 06/03/21 Precautions Precautions WBAT with ASO brace, work on gait training and strengthening. Pt has baseline foot drop. Pt is s/p trimalleolar fracture left ankle, fracture left tibial plateau, complex tear left medial meniscus and ORIF 04/04/21. 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 She got an AFO and did not wear it because it bothered her ankle. She did have lumbar surgery and it improved pain but not the foot drop. Pt has had multiple falls. She broke her left ankle in the past. In March 2021, she had a fall and then she had another fall. She fell in the kitchen. She had foot pain and felt she broke her foot. Pt lives with her daughter, Yamilex. Pt has a RW, ani walker, seat in the bathtub, raised commode with hand rest, borrowed w/c from [employer] , she has a ramp. She will have someone with her when she bathes. She did have services. Pt is sleeping in the bed. Pt is using w/c mostly in the house. She is just starting to use the walker. 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 Prior Treatments and Tests Pt states that she had PT in the past when the PT put her on a machine and walked away. PT at this clinic was good. Treatment Goals Patient/Caregiver Goals To gain strength in legs and to get where feel strong in legs. To decrease anxiety with movement. Her left leg is numb and she doesn't know where it is sometimes. PT-OP-C Subjective Start: 06/03/21 07:16 Freq: Status: Active Protocol: Document 06/03/21 12:14 MB (Rec: 06/03/21 12:39 MB [id number]) OP-PT Subjective Patient Comments Patient Comments See history of current condition Patient Questionnaires Lower Extremity Functional Scale LEFS Score 18 LEFS Impairment 60 to 79% Impaired (Score 17- 31) PT-OP-D Balance Start: 06/03/21 07:16 Freq: Status: Active Protocol: Document 06/03/21 12:14 MB (Rec: 06/03/21 14:06 MB [id number]) Balance Tests Other Other Balance Tests Performed Pt is unable to maintain upright standing balance without RW today, heavy UE support through arms using walker PT-OP-G Mobility & Gait Start: 06/03/21 07:16 Freq: Status: Active Protocol: Document 06/03/21 12:14 MB (Rec: 06/03/21 14:08 MB [id number]) OP Gait Assessment Comments Gait Comments Pt's RW is a little too tall for her but it does not lower further. Pt tends to perform step-to gait, left and then right foot and so PT re-ed pt and daughter about step- through gait forwards and backwards and with turning. She tends to look down to feet d/t foot drop and PT cues pt that her AFO will fern picker the foot. She states she does not know where it is d/t numbness and this is a barrier. Practice lifting head and looking forward and ed to start practicing step-through gait with head up with AFO and RW at home. 10'x2 today. Her posture is forward and flexed. PT-OP-M Strength Start: 06/03/21 07:16 Freq: Status: Active Protocol: Document 06/03/21 12:14 MB (Rec: 06/03/21 14:11 MB [id number]) Hip Strength Hip Manual Muscle Testing Bilateral Flexion (L2) 5 Normal Comments MMT with pt sitting in w/c today Knee Strength Knee Manual Muscle Testing Left Comments MMT deferred d/t known meniscal tear Right Flexion (S2) 5 Normal Extension (L3) 5 Normal Comments MMT with pt sitting in w/c today Ankle/Foot Strength Ankle and Foot Manual Muscle Testing Left Dorsiflexion (L4) 0 Zero Plantarflexion (S1) 0 Zero Inversion 0 Zero Eversion (S1) 0 Zero Comments Left ankle foot drop and s/p fusion now as well. Edema with some redness medial ankle and no movement of toes or ankle. PROM DF close to neutral. Toes are very cold to touch. Areas of ankle and foot and lower leg with edema changes from socks. Right Dorsiflexion (L4) 3+ Fair+ Inversion 3- Fair- Eversion (S1) 3- Fair- Comments Functional movement of ankle and toes. Toes are cool to touch and s/p some changes to toes s/p pinning second toe. Toe Strength Toe Manual Muscle Testing Left Great Toe Extension 0 Zero Right Great Toe Extension 3+ Fair+ PT-OP-Q Treatments Start: 06/03/21 07:16 Freq: Status: Active Protocol: Document 06/03/21 12:14 MB (Rec: 06/03/21 14:04 MB [id number]) Gait Training Gait Activity Gait training with RW Comments Pt's RW is a little too tall for her but it does not lower further. Pt tends to perform step-to gait, left and then right foot and so PT re-ed pt and daughter about step- through gait forwards and backwards and with turning. She tends to look down to feet d/t foot drop and PT cues pt that her AFO will fern picker the foot. She states she does not know where it is d/t numbness and this is a barrier. Practice lifting head and looking forward and ed to start practicing step-through gait with head up with AFO and RW at home. 10'x2 today PT-OP-T Assessment and Plan Start: 06/03/21 07:16 Freq: Status: Active Protocol: Document 06/03/21 12:14 MB (Rec: 06/03/21 15:59 MB [id number]) Physical Therapy Assessment Rehab Potential Rehabilitation Potential Fair Evaluation Complexity Number of Personal Factors/Comorbidities 1-2 Number of Body Systems Impaired 4 or More Clinical Presentation at Evaluation Evolving Impairments Impairments Activity Tolerance,Balance, Coordination,Edema,Functional Activities,Functional Mobility ,Gait,Pain,Posture,ROM, Sensation,Soft Tissue Mobility ,Strength,Transfers Other Impairments Personal factors include cognitive changes per pt and daughter. Body systems affected include musculoskeletal, neurological, neuromuscular and cognitive. 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 Other Concerns Fall Risk Yes Goals 4 Business Executive Goal (LTG) Pt will gait train at least 1000 feet with LRAD in 6 minutes to improve community ambulation by 08/04/21. LTG Duration 8 weeks 3 Retirement Goal (LTG) Pt will perform progressive HEP with superv including flexibility, strengthening, balance and gait exercises to improve strength and gait by . LTG Duration 8 weeks 2 Business Executive Goal (LTG) Pt will perform WNLs on a standardized balance test such as TUG or Tinetti to decrease fall risk by 08/04/21. LTG Duration 8 weeks 1 Retirement Goal (LTG) Pt will deny falls for 8 weeks to decrease re-injury risk by 08/04/21. LTG Duration 8 weeks Assessment Summary Assessment Pt is an 80 y/o female presenting with B LE weakness, poor balance and gait after left ankle trimalleolar fracture s/p ORIF. She also injured her left medical meniscus. 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 She is wearing her left foot AFO that she had not worn pre-injury and she states that the surgeon cleared her to wear this for mobility. Her left ankle and foot are edematous and her toes are very cold to touch. PT ed pt and daughter, Yamilex, in importance of checking her skin at least twice daily by removing AFO and sock and to communicate with home teaching grades 9 thru 12 teacher if any skin changes. Also ed in benefits of elevating left leg without AFO donned. Gait training today and ed pt and daughter to start practicing step- through gait with RW and head up at home. Pt will benefit from PT to improve strength, balance and gait. Barriers include left ankle foot drop and no sensation and PD. Physical Therapy Plan Frequency and Duration Frequency of Treatment 2x/Week Duration of Treatment 8 weeks Plan of Care Start Date 06/03/21 Plan of Care End Date 08/04/21 Therapeutic Interventions Therapeutic Interventions Balance Training,Canalithic Repositioning,Coordination Training,Gait Training,Home Exercise Program,Manual Therapy,Neuromuscular Re- education,Orthotic/Prosthetic Management,Patient/Caregiver Education,Self-Care/Home Management,Sensory Integration ,Soft Tissue Mobilization, Therapeutic Activities, Therapeutic Exercises Modalities Cold Pack/Ice Massage,Hot Packs Next Visit Focus/Plan Next Note Type Treatment Note Next Visit Plan Initiate recumbent stepper and assess sit to stands and maybe perform TUG or Tinetti for baseline.
--- NOTE | 2021-06-03 16:00 | PT.OPPOC ---
Physical, Occupational & Speech Therapy At [facility] Current Diagnoses Foot drop, left foot (06/03/21) Displaced bicondylar fracture of left tibia, initial encounter for closed fracture (06/03/21) Displaced trimalleolar fracture of left lower leg, initial encounter for closed fracture (06/03/21) Complex tear of medial meniscus, current injury, left knee, initial encounter (06/03/21) Visit Care Team Role Provider Type Morgan Sims MD Primary Care Provider Physician Specialty: Family Practice Address: [address] [place] [address], [id number] Email: [email or web address] Vandana Cobos MD Attending Provider Physician Referring Provider Specialty: Orthopedics Address: [address] [place] [address], [address] Email: [email or web address] Plan Of Care PT-OP-T Assessment and Plan Start: 06/03/21 07:16 Freq: Status: Active Protocol: Document 06/03/21 12:14 MB (Rec: 06/03/21 15:59 MB [id number]) Physical Therapy Assessment Rehab Potential Rehabilitation Potential Fair Evaluation Complexity Number of Personal Factors/Comorbidities 1-2 Number of Body Systems Impaired 4 or More Clinical Presentation at Evaluation Evolving Impairments Impairments Activity Tolerance,Balance, Coordination,Edema,Functional Activities,Functional Mobility ,Gait,Pain,Posture,ROM, Sensation,Soft Tissue Mobility ,Strength,Transfers Other Impairments Personal factors include cognitive changes per pt and daughter. Body systems affected include musculoskeletal, neurological, neuromuscular and cognitive. 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 Other Concerns Fall Risk Yes Goals 4 Environmental Services Project Manager Goal (LTG) Pt will gait train at least 1000 feet with LRAD in 6 minutes to improve community ambulation by 08/04/21. LTG Duration 8 weeks 3 Senior Care Goal (LTG) Pt will perform progressive HEP with superv including flexibility, strengthening, balance and gait exercises to improve strength and gait by . LTG Duration 8 weeks 2 Senior Care Goal (LTG) Pt will perform WNLs on a standardized balance test such as TUG or Tinetti to decrease fall risk by 08/04/21. LTG Duration 8 weeks 1 Senior Care Goal (LTG) Pt will deny falls for 8 weeks to decrease re-injury risk by 08/04/21. LTG Duration 8 weeks Assessment Summary Assessment Pt is an 80 y/o female presenting with B LE weakness, poor balance and gait after left ankle trimalleolar fracture s/p ORIF. She also injured her left medical meniscus. 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 She is wearing her left foot AFO that she had not worn pre-injury and she states that the surgeon cleared her to wear this for mobility. Her left ankle and foot are edematous and her toes are very cold to touch. PT ed pt and daughter, Yamilex, in importance of checking her skin at least twice daily by removing AFO and sock and to communicate with recreation assistant if any skin changes. Also ed in benefits of elevating left leg without AFO donned. Gait training today and ed pt and daughter to start practicing step- through gait with RW and head up at home. Pt will benefit from PT to improve strength, balance and gait. Barriers include left ankle foot drop and no sensation and PD. Physical Therapy Plan Frequency and Duration Frequency of Treatment 2x/Week Duration of Treatment 8 weeks Plan of Care Start Date 06/03/21 Plan of Care End Date 08/04/21 Therapeutic Interventions Therapeutic Interventions Balance Training,Canalithic Repositioning,Coordination Training,Gait Training,Home Exercise Program,Manual Therapy,Neuromuscular Re- education,Orthotic/Prosthetic Management,Patient/Caregiver Education,Self-Care/Home Management,Sensory Integration ,Soft Tissue Mobilization, Therapeutic Activities, Therapeutic Exercises Modalities Cold Pack/Ice Massage,Hot Packs Next Visit Focus/Plan Next Note Type Treatment Note Next Visit Plan Initiate recumbent stepper and assess sit to stands and maybe perform TUG or Tinetti for baseline. Plan of Care Dates Plan of Care Start Date 06/03/21 Plan of Care End Date 08/04/21 Electronically Signed by: Marimar Fonseca PT 06/03/21 1600 Please Sign and Return: I have reviewed this Plan of Care and certify that the skilled therapy services above are required to meet the patient?s needs. Physician Signature Date Printed Name and Credentials Clinical Instructor Signature Printed Name and Credentials
--- NOTE | 2021-06-20 14:34 | PT.OTN ---
Current Diagnoses Foot drop, left foot (06/20/21) Displaced bicondylar fracture of left tibia, initial encounter for closed fracture (06/20/21) Displaced trimalleolar fracture of left lower leg, initial encounter for closed fracture (06/20/21) Complex tear of medial meniscus, current injury, left knee, initial encounter (06/20/21) Physical Therapy Treatment Note PT-OP-A Visit Information Start: 06/03/21 07:16 Freq: Status: Active Protocol: Document 06/20/21 13:47 SP (Rec: 06/20/21 16:00 SP [id number]) Out-Patient Physical Therapy Visit Information Visit Information Visit Type Treatment Note Visit Note [employer] [facility] [place] Medicare Ad[place] 01/03 before modifier Visit Start Time 13:47 Visit Stop Time 14:34 Total Visit Minutes 47 Visit Number 2 Number of TRACTOR TRAILER TRUCK DRIVER Visits 1 Evaluation Information Evaluation Date 06/03/21 Precautions Precautions WBAT with ASO brace, work on gait training and strengthening. Pt has baseline foot drop. Pt is s/p trimalleolar fracture left ankle, fracture left tibial plateau, complex tear left medial meniscus and ORIF 04/04/21. 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 She got an AFO and did not wear it because it bothered her ankle. She did have lumbar surgery and it improved pain but not the foot drop. Pt has had multiple falls. She broke her left ankle in the past. In March 2021, she had a fall and then she had another fall. She fell in the kitchen. She had foot pain and felt she broke her foot. Pt lives with her daughter, Yamilex. Pt has a RW, ani walker, seat in the bathtub, raised commode with hand rest, [facility] she has a ramp. She will have someone with her when she bathes. She did have services. Pt is sleeping in the bed. Pt is using w/c mostly in the house. She is just starting to use the walker. 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 Prior Treatments and Tests Pt states that she had PT in the past when the PT put her on a machine and walked away. PT at this clinic was good. Treatment Goals Patient/Caregiver Goals To gain strength in legs and to get where feel strong in legs. To decrease anxiety with movement. Her left leg is numb and she doesn't know where it is sometimes. PT-OP-C Subjective Start: 06/03/21 07:16 Freq: Status: Active Protocol: Document 06/20/21 13:47 SP (Rec: 06/20/21 16:00 SP [id number]) OP-PT Subjective Patient Comments Patient Comments Pt stated today is not the best day. I brought my knee brace that put on my R knee even though got it for my L knee but it doesn't fit on my L knee with the AFO and did have R knee not support me in the past so I wear it on my R knee. I want to get a different L knee brace that only has strap above and below the knee and cover behind the knee, hard time managing the current brace straps with lack of bulk sealer strength and feeling in B hands/fingers to manage it. PT-OP-D Balance Start: 06/03/21 07:16 Freq: Status: Active Protocol: Document 06/20/21 13:47 SP (Rec: 06/20/21 16:00 SP [id number]) Balance Tests Other Other Balance Tests Performed Pt was able leg go 1/2 way through coming to standing and stand for approx 5 sec before needed to contact RW for balance. TU min 23 sec Tinetti Balance Assessment Scoring and Interpretation Interpretation of Scores High risk for falls(< 19) Tinetti Impairment Rating from Composite 20 to <40% Impaired (Score 17- Score 22) PT-OP-G Mobility & Gait Start: 06/03/21 07:16 Freq: Status: Active Protocol: Document 06/03/21 12:14 MB (Rec: 06/03/21 14:08 MB [id number]) OP Gait Assessment Comments Gait Comments Pt's RW is a little too tall for her but it does not lower further. Pt tends to perform step-to gait, left and then right foot and so PT re-ed pt and daughter about step- through gait forwards and backwards and with turning. She tends to look down to feet d/t foot drop and PT cues pt that her AFO will belt picker the foot. She states she does not know where it is d/t numbness and this is a barrier. Practice lifting head and looking forward and ed to start practicing step-through gait with head up with AFO and RW at home. 10'x2 today. Her posture is forward and flexed. PT-OP-M Strength Start: 06/03/21 07:16 Freq: Status: Active Protocol: Document 06/03/21 12:14 MB (Rec: 06/03/21 14:11 MB [id number]) Hip Strength Hip Manual Muscle Testing Bilateral Flexion (L2) 5 Normal Comments MMT with pt sitting in w/c today Knee Strength Knee Manual Muscle Testing Left Comments MMT deferred d/t known meniscal tear Right Flexion (S2) 5 Normal Extension (L3) 5 Normal Comments MMT with pt sitting in w/c today Ankle/Foot Strength Ankle and Foot Manual Muscle Testing Left Dorsiflexion (L4) 0 Zero Plantarflexion (S1) 0 Zero Inversion 0 Zero Eversion (S1) 0 Zero Comments Left ankle foot drop and s/p fusion now as well. Edema with some redness medial ankle and no movement of toes or ankle. PROM DF close to neutral. Toes are very cold to touch. Areas of ankle and foot and lower leg with edema changes from socks. Right Dorsiflexion (L4) 3+ Fair+ Inversion 3- Fair- Eversion (S1) 3- Fair- Comments Functional movement of ankle and toes. Toes are cool to touch and s/p some changes to toes s/p pinning second toe. Toe Strength Toe Manual Muscle Testing Left Great Toe Extension 0 Zero Right Great Toe Extension 3+ Fair+ PT-OP-Q Treatments Start: 06/03/21 07:16 Freq: Status: Active Protocol: Document 06/20/21 13:47 SP (Rec: 06/20/21 16:00 SP [id number]) Cardio Equipment Recumbent Elliptical (Biodex) Duration (Minutes) 6 Resistance 1 Seat Position 7 Other slow LE AROM w/ UE assist warm up Therapeutic Exercises Sitting Exercises sit <> stands Sitting Exercise Name uses BUE > 1 UE Resistance added to HEP Equipment Used 1. used BUE Mod assist w/c chair arms cued full upright, then Reps/Minutes 5 reps 21 seconds 2 UE assist rise, cued w/ 1 UE slow eccentric descend Comments 2. quality HEP: AROM- cued scoot forward, feet underneath , hip hinge 2>1 UE seated clamshell Sitting Exercise Name added to HEP Side bilateral Resistance TB #1 loop Reps/Minutes x10 (below knees due to pain over Hs tendons above knee) Comments good glut med fac with nice slow pace return post cues PT-OP-T Assessment and Plan Start: 06/03/21 07:16 Freq: Status: Active Protocol: Document 06/20/21 13:47 SP (Rec: 06/20/21 16:00 SP [id number]) Physical Therapy Assessment Goals 4 Intermediate Goal (LTG) Pt will gait train at least 1000 feet with LRAD in 6 minutes to improve community ambulation by 08/04/21. 06/20/21: HEP: seated hip abd clamshell Tb #1, sit<>stands LTG Duration 8 weeks 3 Plaster Mixer Goal (LTG) Pt will perform progressive HEP with superv including flexibility, strengthening, balance and gait exercises to improve strength and gait by . LTG Duration 8 weeks 2 Intermediate Goal (LTG) Pt will perform WNLs on a standardized balance test such as TUG or Tinetti to decrease fall risk by 08/04/21. 06/20/21: Baseline: Tinetti , TUG 1 min 23 sec. LTG Duration 8 weeks 1 Intermediate Goal (LTG) Pt will deny falls for 8 weeks to decrease re-injury risk by 08/04/21. LTG Duration 8 weeks Assessment Summary Assessment Pt had muscle tiring but no pain, at 4 min on bike biodex so stopped, adjusted L ankle into comfort EV w/ AFO and brace on R knee. donned and but discussed would like to improve alignment of L ankle if we can. Assessed Tinetti and TUG baseline testing, pt is high fall risk discussed and agreed, wants to improve standing balance to improve gait. Provided pt HEP in sitting see ther ex and added to goals feedback. Pt stated this was a good start. Physical Therapy Plan Frequency and Duration Frequency of Treatment 2x/Week Duration of Treatment 8 weeks Plan of Care Start Date 06/03/21 Plan of Care End Date 08/04/21 Therapeutic Interventions Therapeutic Interventions Balance Training,Canalithic Repositioning,Coordination Training,Gait Training,Home Exercise Program,Manual Therapy,Neuromuscular Re- education,Orthotic/Prosthetic Management,Patient/Caregiver Education,Self-Care/Home Management,Sensory Integration ,Soft Tissue Mobilization, Therapeutic Activities, Therapeutic Exercises Modalities Cold Pack/Ice Massage,Hot Packs Next Visit Focus/Plan Next Note Type Treatment Note Next Visit Plan Review HEP: sit<> stands and seated clamshell HEP initiated last tx. Next tx add: standing hip abd, ext, corner balance, gait endurance, step taps. POC: continue biodex stepper, sit to stands for time and progress balance, gait with improved LLE foot clearance and LE strengthenging to improve TUG and Tinetti.
--- NOTE | 2021-06-20 14:34 | PT.OTN ---
Current Diagnoses Foot drop, left foot (06/20/21) Displaced bicondylar fracture of left tibia, initial encounter for closed fracture (06/20/21) Displaced trimalleolar fracture of left lower leg, initial encounter for closed fracture (06/20/21) Complex tear of medial meniscus, current injury, left knee, initial encounter (06/20/21) Physical Therapy Treatment Note PT-OP-A Visit Information Start: 06/03/21 07:16 Freq: Status: Active Protocol: Document 06/20/21 13:47 SP (Rec: 06/20/21 16:00 SP [id number]) Out-Patient Physical Therapy Visit Information Visit Information Visit Type Treatment Note Visit Note [employer] [facility] [place] 01/03 before modifier Visit Start Time 13:47 Visit Stop Time 14:34 Total Visit Minutes 47 Visit Number 2 Number of TIE PULLER Visits 1 Evaluation Information Evaluation Date 06/03/21 Precautions Precautions WBAT with ASO brace, work on gait training and strengthening. Pt has baseline foot drop. Pt is s/p trimalleolar fracture left ankle, fracture left tibial plateau, complex tear left medial meniscus and ORIF 04/04/21. 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 She got an AFO and did not wear it because it bothered her ankle. She did have lumbar surgery and it improved pain but not the foot drop. Pt has had multiple falls. She broke her left ankle in the past. In March 2021, she had a fall and then she had another fall. She fell in the kitchen. She had foot pain and felt she broke her foot. Pt lives with her daughter, Yamilex. Pt has a RW, ani walker, seat in the bathtub, raised commode with hand rest, [facility] she has a ramp. She will have someone with her when she bathes. She did have services. Pt is sleeping in the bed. Pt is using w/c mostly in the house. She is just starting to use the walker. 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 Prior Treatments and Tests Pt states that she had PT in the past when the PT put her on a machine and walked away. PT at this clinic was good. Treatment Goals Patient/Caregiver Goals To gain strength in legs and to get where feel strong in legs. To decrease anxiety with movement. Her left leg is numb and she doesn't know where it is sometimes. PT-OP-C Subjective Start: 06/03/21 07:16 Freq: Status: Active Protocol: Document 06/20/21 13:47 SP (Rec: 06/20/21 16:00 SP [id number]) OP-PT Subjective Patient Comments Patient Comments Pt stated today is not the best day. I brought my knee brace that put on my R knee even though got it for my L knee but it doesn't fit on my L knee with the AFO and did have R knee not support me in the past so I wear it on my R knee. I want to get a different L knee brace that only has strap above and below the knee and cover behind the knee, hard time managing the current brace straps with lack of implementation director strength and feeling in B hands/fingers to manage it. PT-OP-D Balance Start: 06/03/21 07:16 Freq: Status: Active Protocol: Document 06/20/21 13:47 SP (Rec: 06/20/21 16:00 SP [id number]) Balance Tests Other Other Balance Tests Performed Pt was able leg go 1/2 way through coming to standing and stand for approx 5 sec before needed to contact RW for balance. TU min 23 sec Tinetti Balance Assessment Scoring and Interpretation Interpretation of Scores High risk for falls(< 19) Tinetti Impairment Rating from Composite 20 to <40% Impaired (Score 17- Score 22) PT-OP-G Mobility & Gait Start: 06/03/21 07:16 Freq: Status: Active Protocol: Document 06/03/21 12:14 MB (Rec: 06/03/21 14:08 MB [id number]) OP Gait Assessment Comments Gait Comments Pt's RW is a little too tall for her but it does not lower further. Pt tends to perform step-to gait, left and then right foot and so PT re-ed pt and daughter about step- through gait forwards and backwards and with turning. She tends to look down to feet d/t foot drop and PT cues pt that her AFO will poultry picking machine tender the foot. She states she does not know where it is d/t numbness and this is a barrier. Practice lifting head and looking forward and ed to start practicing step-through gait with head up with AFO and RW at home. 10'x2 today. Her posture is forward and flexed. PT-OP-M Strength Start: 06/03/21 07:16 Freq: Status: Active Protocol: Document 06/03/21 12:14 MB (Rec: 06/03/21 14:11 MB [id number]) Hip Strength Hip Manual Muscle Testing Bilateral Flexion (L2) 5 Normal Comments MMT with pt sitting in w/c today Knee Strength Knee Manual Muscle Testing Left Comments MMT deferred d/t known meniscal tear Right Flexion (S2) 5 Normal Extension (L3) 5 Normal Comments MMT with pt sitting in w/c today Ankle/Foot Strength Ankle and Foot Manual Muscle Testing Left Dorsiflexion (L4) 0 Zero Plantarflexion (S1) 0 Zero Inversion 0 Zero Eversion (S1) 0 Zero Comments Left ankle foot drop and s/p fusion now as well. Edema with some redness medial ankle and no movement of toes or ankle. PROM DF close to neutral. Toes are very cold to touch. Areas of ankle and foot and lower leg with edema changes from socks. Right Dorsiflexion (L4) 3+ Fair+ Inversion 3- Fair- Eversion (S1) 3- Fair- Comments Functional movement of ankle and toes. Toes are cool to touch and s/p some changes to toes s/p pinning second toe. Toe Strength Toe Manual Muscle Testing Left Great Toe Extension 0 Zero Right Great Toe Extension 3+ Fair+ PT-OP-Q Treatments Start: 06/03/21 07:16 Freq: Status: Active Protocol: Document 06/20/21 13:47 SP (Rec: 06/20/21 16:00 SP [id number]) Cardio Equipment Recumbent Elliptical (Biodex) Duration (Minutes) 6 Resistance 1 Seat Position 7 Other slow LE AROM w/ UE assist warm up Therapeutic Exercises Sitting Exercises sit <> stands Sitting Exercise Name uses BUE > 1 UE Resistance added to HEP Equipment Used 1. used BUE Mod assist w/c chair arms cued full upright, then Reps/Minutes 5 reps 23 seconds Comments 2. quality HEP: AROM- cued scoot forward, feet underneath , hip hinge 2>1 UE seated clamshell Sitting Exercise Name added to HEP Side bilateral Resistance TB #1 loop Reps/Minutes x10 (below knees due to pain over Hs tendons above knee) Comments good glut med fac with nice slow pace return post cues PT-OP-T Assessment and Plan Start: 06/03/21 07:16 Freq: Status: Active Protocol: Document 06/20/21 13:47 SP (Rec: 06/20/21 16:00 SP [id number]) Physical Therapy Assessment Goals 4 Slot Supervisor Goal (LTG) Pt will gait train at least 1000 feet with LRAD in 6 minutes to improve community ambulation by 08/04/21. 06/20/21: HEP: seated hip abd clamshell Tb #1, sit<>stands LTG Duration 8 weeks 3 Residential Goal (LTG) Pt will perform progressive HEP with superv including flexibility, strengthening, balance and gait exercises to improve strength and gait by . LTG Duration 8 weeks 2 Slot Supervisor Goal (LTG) Pt will perform WNLs on a standardized balance test such as TUG or Tinetti to decrease fall risk by 08/04/21. 06/20/21: Baseline: Tinetti , TUG 1 min 23 sec. LTG Duration 8 weeks 1 Slot Supervisor Goal (LTG) Pt will deny falls for 8 weeks to decrease re-injury risk by 08/04/21. LTG Duration 8 weeks Assessment Summary Assessment Pt had muscle tiring but no pain, at 4 min on bike biodex so stopped, adjusted L ankle into comfort EV w/ AFO and brace on R knee. donned and but discussed would like to improve alignment of L ankle if we can. Assessed Tinetti and TUG baseline testing, pt is high fall risk discussed and agreed, wants to improve standing balance to improve gait. Provided pt HEP in sitting see ther ex and added to goals feedback. Pt stated this was a good start. Physical Therapy Plan Frequency and Duration Frequency of Treatment 2x/Week Duration of Treatment 8 weeks Plan of Care Start Date 06/03/21 Plan of Care End Date 08/04/21 Therapeutic Interventions Therapeutic Interventions Balance Training,Canalithic Repositioning,Coordination Training,Gait Training,Home Exercise Program,Manual Therapy,Neuromuscular Re- education,Orthotic/Prosthetic Management,Patient/Caregiver Education,Self-Care/Home Management,Sensory Integration ,Soft Tissue Mobilization, Therapeutic Activities, Therapeutic Exercises Modalities Cold Pack/Ice Massage,Hot Packs Next Visit Focus/Plan Next Note Type Treatment Note Next Visit Plan Review HEP: sit<> stands and seated clamshell HEP initiated last tx. Next tx add: standing hip abd, ext, corner balance, gait endurance, step taps. POC: continue biodex stepper, sit to stands for time and progress balance, gait with improved LLE foot clearance and LE strengthenging to improve TUG and Tinetti.
--- NOTE | 2021-06-27 13:54 | PT.OTN ---
Current Diagnoses Foot drop, left foot (06/27/21) Displaced bicondylar fracture of left tibia, initial encounter for closed fracture (06/27/21) Displaced trimalleolar fracture of left lower leg, initial encounter for closed fracture (06/27/21) Complex tear of medial meniscus, current injury, left knee, initial encounter (06/27/21) Physical Therapy Treatment Note PT-OP-A Visit Information Start: 06/03/21 07:16 Freq: Status: Active Protocol: Document 06/27/21 13:00 MB (Rec: 06/27/21 13:54 MB [id number]) Out-Patient Physical Therapy Visit Information Visit Information Visit Type Treatment Note Visit Note [facility] [place] Medicare Advantage 01/31 before KX Visit Start Time 13:00 Visit Stop Time 13:45 Total Visit Minutes 45 Visit Number 3 Number of PODODERMATOLOGIST Visits 0 Precautions Precautions WBAT with ASO brace, work on gait training and strengthening. Pt has baseline foot drop. Pt is s/p trimalleolar fracture left ankle, fracture left tibial plateau, complex tear left medial meniscus and ORIF 04/04/21. 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 She got an AFO and did not wear it because it bothered her ankle. She did have lumbar surgery and it improved pain but not the foot drop. Pt has had multiple falls. She broke her left ankle in the past. In March 2021, she had a fall and then she had another fall. She fell in the kitchen. She had foot pain and felt she broke her foot. Pt lives with her daughter, Yamilex. Pt has a RW, ani walker, seat in the bathtub, raised commode with hand rest, borrowed w/c from [employer] , she has a ramp. She will have someone with her when she bathes. She did have services. Pt is sleeping in the bed. Pt is using w/c mostly in the house. She is just starting to use the walker. 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 Prior Treatments and Tests Pt states that she had PT in the past when the PT put her on a machine and walked away. PT at this clinic was good. Treatment Goals Patient/Caregiver Goals To gain strength in legs and to get where feel strong in legs. To decrease anxiety with movement. Her left leg is numb and she doesn't know where it is sometimes. PT-OP-C Subjective Start: 06/03/21 07:16 Freq: Status: Active Protocol: Document 06/27/21 13:00 MB (Rec: 06/27/21 13:54 MB [id number]) OP-PT Subjective Patient Comments Patient Comments Pt reports that she has days where she feels so weak and cannot do a lot and that is why she has cancelled some appointments. Her sleep is erratic and her eating is not regular. She is going to sell her house and move into [facility]. She anticipates doing this this weekend. PT-OP-D Balance Start: 06/03/21 07:16 Freq: Status: Active Protocol: Document 06/20/21 13:47 SP (Rec: 06/20/21 16:00 SP [id number]) Balance Tests Other Other Balance Tests Performed Pt was able leg go 1/2 way through coming to standing and stand for approx 5 sec before needed to contact RW for balance. TU min 23 sec Tinetti Balance Assessment Scoring and Interpretation Interpretation of Scores High risk for falls(< 19) Tinetti Impairment Rating from Composite 20 to <40% Impaired (Score 17- Score 22) PT-OP-G Mobility & Gait Start: 06/03/21 07:16 Freq: Status: Active Protocol: Document 06/03/21 12:14 MB (Rec: 06/03/21 14:08 MB [id number]) OP Gait Assessment Comments Gait Comments Pt's RW is a little too tall for her but it does not lower further. Pt tends to perform step-to gait, left and then right foot and so PT re-ed pt and daughter about step- through gait forwards and backwards and with turning. She tends to look down to feet d/t foot drop and PT cues pt that her AFO will poultry picking machine tender the foot. She states she does not know where it is d/t numbness and this is a barrier. Practice lifting head and looking forward and ed to start practicing step-through gait with head up with AFO and RW at home. 10'x2 today. Her posture is forward and flexed. PT-OP-M Strength Start: 06/03/21 07:16 Freq: Status: Active Protocol: Document 06/03/21 12:14 MB (Rec: 06/03/21 14:11 MB [id number]) Hip Strength Hip Manual Muscle Testing Bilateral Flexion (L2) 5 Normal Comments MMT with pt sitting in w/c today Knee Strength Knee Manual Muscle Testing Left Comments MMT deferred d/t known meniscal tear Right Flexion (S2) 5 Normal Extension (L3) 5 Normal Comments MMT with pt sitting in w/c today Ankle/Foot Strength Ankle and Foot Manual Muscle Testing Left Dorsiflexion (L4) 0 Zero Plantarflexion (S1) 0 Zero Inversion 0 Zero Eversion (S1) 0 Zero Comments Left ankle foot drop and s/p fusion now as well. Edema with some redness medial ankle and no movement of toes or ankle. PROM DF close to neutral. Toes are very cold to touch. Areas of ankle and foot and lower leg with edema changes from socks. Right Dorsiflexion (L4) 3+ Fair+ Inversion 3- Fair- Eversion (S1) 3- Fair- Comments Functional movement of ankle and toes. Toes are cool to touch and s/p some changes to toes s/p pinning second toe. Toe Strength Toe Manual Muscle Testing Left Great Toe Extension 0 Zero Right Great Toe Extension 3+ Fair+ PT-OP-Q Treatments Start: 06/03/21 07:16 Freq: Status: Active Protocol: Document 06/27/21 13:00 MB (Rec: 06/27/21 13:54 MB [id number]) Cardio Equipment Recumbent Elliptical (Biodex) Duration (Minutes) 12 Resistance 1 Seat Position 8 Other UE and LE Therapeutic Exercises Sitting Exercises sit <> stands Sitting Exercise Name Several reps Comments She can perform without UE today, 2 reps in 30 sec Gait Training Gait Activity 6MWT Comments Pt gait trains 343 feet with RW O2 sats are 97% and HR is 102 BPM after gait Gait training with RW Comments PT assists pt to take off right knee brace and she wears AFO on L and has her RW and gait belt from clinic. Foot drop on the left and shoes are ripping on the sides. She is going to inquire about her shoes and AFO. Gait is better today: superv assist for several trials and she turns and backs up to chair and can sit and stand without UE support PT-OP-T Assessment and Plan Start: 06/03/21 07:16 Freq: Status: Active Protocol: Document 06/27/21 13:00 MB (Rec: 06/27/21 13:54 MB [id number]) Physical Therapy Assessment Rehab Potential Rehabilitation Potential Fair Evaluation Complexity Number of Personal Factors/Comorbidities 1-2 Number of Body Systems Impaired 4 or More Clinical Presentation at Evaluation Evolving Impairments Impairments Activity Tolerance,Balance, Coordination,Edema,Functional Activities,Functional Mobility ,Gait,Pain,Posture,ROM, Sensation,Soft Tissue Mobility ,Strength,Transfers Other Impairments Personal factors include cognitive changes per pt and daughter. Body systems affected include musculoskeletal, neurological, neuromuscular and cognitive. 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 Other Concerns Fall Risk Yes Goals 4 Longterm Goal (LTG) Pt will gait train at least 1000 feet with LRAD in 6 minutes to improve community ambulation by 08/04/21. LTG Duration 8 weeks 3 Longterm Goal (LTG) Pt will perform progressive HEP with superv including flexibility, strengthening, balance and gait exercises to improve strength and gait by . LTG Duration 8 weeks 2 Clinical Pharmacy Manager Goal (LTG) Pt will perform WNLs on a standardized balance test such as TUG or Tinetti to decrease fall risk by 08/04/21. LTG Duration 8 weeks 1 Clinical Pharmacy Manager Goal (LTG) Pt will deny falls for 8 weeks to decrease re-injury risk by 08/04/21. LTG Duration 8 weeks Assessment Summary Assessment O2 sats 95-97% and HR 66-93 BPM per pulse ox with exercising. Pt progresses with gait and sit to stands today. She may have some treatment cancellations in the next weeks if she has trouble getting a ride once she moves. Physical Therapy Plan Frequency and Duration Frequency of Treatment 2x/Week Duration of Treatment 8 weeks Plan of Care Start Date 06/03/21 Plan of Care End Date 08/04/21 Therapeutic Interventions Therapeutic Interventions Balance Training,Canalithic Repositioning,Coordination Training,Gait Training,Home Exercise Program,Manual Therapy,Neuromuscular Re- education,Orthotic/Prosthetic Management,Patient/Caregiver Education,Self-Care/Home Management,Sensory Integration ,Soft Tissue Mobilization, Therapeutic Activities, Therapeutic Exercises Modalities Cold Pack/Ice Massage,Hot Packs Next Visit Focus/Plan Next Note Type Treatment Note Next Visit Plan Consider adding: standing hip abd, ext, corner balance, gait endurance, step taps.
--- NOTE | 2021-07-01 08:22 | PT-OP ANOTE ---
Pt cancelled 06/30/21 mid afternoon, cancelled appt due to no transportation for today's appt.
--- NOTE | 2021-07-04 14:30 | PT.OTN ---
Current Diagnoses Foot drop, left foot (07/04/21) Displaced bicondylar fracture of left tibia, initial encounter for closed fracture (07/04/21) Displaced trimalleolar fracture of left lower leg, initial encounter for closed fracture (07/04/21) Complex tear of medial meniscus, current injury, left knee, initial encounter (07/04/21) Physical Therapy Treatment Note PT-OP-A Visit Information Start: 06/03/21 07:16 Freq: Status: Active Protocol: Document 07/04/21 13:45 SP (Rec: 07/04/21 15:44 SP [id number]) Out-Patient Physical Therapy Visit Information Visit Information Visit Type Treatment Note Visit Note [facility] Medicare Advantage 03/03 before KX Visit Start Time 13:45 Visit Stop Time 14:30 Total Visit Minutes 45 Visit Number 4 Number of TAXICAB COORDINATOR Visits 1 Evaluation Information Evaluation Date 06/03/21 Precautions Precautions WBAT with ASO brace, work on gait training and strengthening. Pt has baseline foot drop. Pt is s/p trimalleolar fracture left ankle, fracture left tibial plateau, complex tear left medial meniscus and ORIF 04/04/21. 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 She got an AFO and did not wear it because it bothered her ankle. She did have lumbar surgery and it improved pain but not the foot drop. Pt has had multiple falls. She broke her left ankle in the past. In March 2021, she had a fall and then she had another fall. She fell in the kitchen. She had foot pain and felt she broke her foot. Pt lives with her daughter, Yamilex. Pt has a RW, ani walker, seat in the bathtub, raised commode with hand rest, borrowed w/c from [facility] , she has a ramp. She will have someone with her when she bathes. She did have services. Pt is sleeping in the bed. Pt is using w/c mostly in the house. She is just starting to use the walker. 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 Prior Treatments and Tests Pt states that she had PT in the past when the PT put her on a machine and walked away. PT at this clinic was good. Treatment Goals Patient/Caregiver Goals To gain strength in legs and to get where feel strong in legs. To decrease anxiety with movement. Her left leg is numb and she doesn't know where it is sometimes. PT-OP-C Subjective Start: 06/03/21 07:16 Freq: Status: Active Protocol: Document 07/04/21 13:45 SP (Rec: 07/04/21 15:44 SP [id number]) OP-PT Subjective Patient Comments Patient Comments Pt stated I get a little shaky and unsteady on my feet and want to improve this. I am little frustrated at the moment with moving and selling personal belongs. PT-OP-D Balance Start: 06/03/21 07:16 Freq: Status: Active Protocol: Document 06/20/21 13:47 SP (Rec: 06/20/21 16:00 SP [id number]) Balance Tests Other Other Balance Tests Performed Pt was able leg go 1/2 way through coming to standing and stand for approx 5 sec before needed to contact RW for balance. TU min 23 sec Tinetti Balance Assessment Scoring and Interpretation Interpretation of Scores High risk for falls(< 19) Tinetti Impairment Rating from Composite 20 to <40% Impaired (Score 17- Score 22) PT-OP-G Mobility & Gait Start: 06/03/21 07:16 Freq: Status: Active Protocol: Document 06/03/21 12:14 MB (Rec: 06/03/21 14:08 MB [id number]) OP Gait Assessment Comments Gait Comments Pt's RW is a little too tall for her but it does not lower further. Pt tends to perform step-to gait, left and then right foot and so PT re-ed pt and daughter about step- through gait forwards and backwards and with turning. She tends to look down to feet d/t foot drop and PT cues pt that her AFO will picker box operator the foot. She states she does not know where it is d/t numbness and this is a barrier. Practice lifting head and looking forward and ed to start practicing step-through gait with head up with AFO and RW at home. 10'x2 today. Her posture is forward and flexed. PT-OP-M Strength Start: 06/03/21 07:16 Freq: Status: Active Protocol: Document 06/03/21 12:14 MB (Rec: 06/03/21 14:11 MB [id number]) Hip Strength Hip Manual Muscle Testing Bilateral Flexion (L2) 5 Normal Comments MMT with pt sitting in w/c today Knee Strength Knee Manual Muscle Testing Left Comments MMT deferred d/t known meniscal tear Right Flexion (S2) 5 Normal Extension (L3) 5 Normal Comments MMT with pt sitting in w/c today Ankle/Foot Strength Ankle and Foot Manual Muscle Testing Left Dorsiflexion (L4) 0 Zero Plantarflexion (S1) 0 Zero Inversion 0 Zero Eversion (S1) 0 Zero Comments Left ankle foot drop and s/p fusion now as well. Edema with some redness medial ankle and no movement of toes or ankle. PROM DF close to neutral. Toes are very cold to touch. Areas of ankle and foot and lower leg with edema changes from socks. Right Dorsiflexion (L4) 3+ Fair+ Inversion 3- Fair- Eversion (S1) 3- Fair- Comments Functional movement of ankle and toes. Toes are cool to touch and s/p some changes to toes s/p pinning second toe. Toe Strength Toe Manual Muscle Testing Left Great Toe Extension 0 Zero Right Great Toe Extension 3+ Fair+ PT-OP-Q Treatments Start: 06/03/21 07:16 Freq: Status: Active Protocol: Document 07/04/21 13:45 SP (Rec: 07/04/21 15:44 SP [id number]) Cardio Equipment Recumbent Elliptical (Meilimei) Duration (Minutes) 6 Resistance 1 Seat Position 8 (97% SaO2, 101 HR) Other UE and LE (doffed AFO on LLE), 45-50 RPMs, 615 total steps Therapeutic Exercises Sitting Exercises sit <> stands Sitting Exercise Name 1 UE Resistance added to HEP Reps/Minutes 1.5 reps 21 seconds 2 UE assist rise, cued w/ 1 UE slow eccentric descend Comments 2. quality HEP: AROM- cued scoot forward, feet underneath , hip hinge 1 UE Standing Exercises marching Standing Exercise Name added to HEP (declined HO for home) Equipment Used BUE on HR Reps/Minutes x10 reps Comments cued tall posture hip abd Standing Exercise Name added to HEP (declined HO for home) Side bilateral Reps/Minutes 2x10 Comments cued tall posture and slow eccentric control Gait Training Gait Activity 6MWT Description did not time this tx Comments Pt gait trains 371 feet with RW O2 sats are 96% RA and HR is 109 BPM after gait PT-OP-T Assessment and Plan Start: 06/03/21 07:16 Freq: Status: Active Protocol: Document 07/04/21 13:45 SP (Rec: 07/04/21 15:44 SP [id number]) Physical Therapy Assessment Goals 4 Instrument Mechanics Supervisor Goal (LTG) Pt will gait train at least 1000 feet with LRAD in 6 minutes to improve community ambulation by 08/04/21. LTG Duration 8 weeks 3 Long-Term Goal (LTG) Pt will perform progressive HEP with superv including flexibility, strengthening, balance and gait exercises to improve strength and gait by . LTG Duration 8 weeks 2 Instrument Mechanics Supervisor Goal (LTG) Pt will perform WNLs on a standardized balance test such as TUG or Tinetti to decrease fall risk by 08/04/21. LTG Duration 8 weeks 1 Instrument Mechanics Supervisor Goal (LTG) Pt will deny falls for 8 weeks to decrease re-injury risk by 08/04/21. LTG Duration 8 weeks Assessment Summary Assessment O2 stats 96-97% RA, HR 101-109 with exercise per pulse oximeter. Pt retro LOB x1 upon initial ascend from chair. Post education on hip hinge over COG, complete to full stand and slow hip hinge descent with UE reaching back if needed for safety, able to perform 5 repetitions in 21 sec this tx without UE support . Pt able to complete gait 371 ft, didn't time this tx, had 1 stopped break for PT Aide to lubricate RW wheels, improved decreased friction on carpet. Pt was to tired at end of tx to walk out to car, provided w /c ride to car. Pt stated has a personal w/c that still needs at times during times to tired. Physical Therapy Plan Frequency and Duration Frequency of Treatment 2x/Week Duration of Treatment 8 weeks Plan of Care Start Date 06/03/21 Plan of Care End Date 08/04/21 Therapeutic Interventions Therapeutic Interventions Balance Training,Canalithic Repositioning,Coordination Training,Gait Training,Home Exercise Program,Manual Therapy,Neuromuscular Re- education,Orthotic/Prosthetic Management,Patient/Caregiver Education,Self-Care/Home Management,Sensory Integration ,Soft Tissue Mobilization, Therapeutic Activities, Therapeutic Exercises Modalities Cold Pack/Ice Massage,Hot Packs Next Visit Focus/Plan Next Note Type Treatment Note Next Visit Plan Assess initiated stand hip abd and march at //bar- given for home HEP at counter, discussed chair nearby for sit recovery. POC: Consider adding: standing ext, corner balance, gait endurance, step taps.
--- NOTE | 2021-07-11 10:38 | PT.OPDS ---
Current Diagnoses Foot drop, left foot (07/04/21) Displaced bicondylar fracture of left tibia, initial encounter for closed fracture (07/04/21) Displaced trimalleolar fracture of left lower leg, initial encounter for closed fracture (07/04/21) Complex tear of medial meniscus, current injury, left knee, initial encounter (07/04/21) Visit Care Team Role Provider Type Morgan Sims MD Primary Care Provider Physician Specialty: Family Practice Address: [address] [place] [address], [id number] Email: 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 She got an AFO and did not wear it because it bothered her ankle. She did have lumbar surgery and it improved pain but not the foot drop. Pt has had multiple falls. She broke her left ankle in the past. In March 2021, she had a fall and then she had another fall. She fell in the kitchen. She had foot pain and felt she broke her foot. Pt lives with her daughter, Yamilex. Pt has a RW, ani walker, seat in the bathtub, raised commode with hand rest, borrowed w/c from [employer] , she has a ramp. She will have someone with her when she bathes. She did have HH services. Pt is sleeping in the bed. Pt is using w/c mostly in the house. She is just starting to use the walker. 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 Prior Treatments and Tests Pt states that she had PT in the past when the PT put her on a machine and walked away. PT at this clinic was good. Treatment Goals Patient/Caregiver Goals To gain strength in legs and to get where feel strong in legs. To decrease anxiety with movement. Her left leg is numb and she doesn't know where it is sometimes. PT-OP-C Subjective Start: 06/03/21 07:16 Freq: Status: Active Protocol: Document 07/04/21 13:45 SP (Rec: 07/04/21 15:44 SP [id number]) OP-PT Subjective Patient Comments Patient Comments Pt stated I get a little shaky and unsteady on my feet and want to improve this. I am little frustrated at the moment with moving and selling personal belongs. PT-OP-D Balance Start: 06/03/21 07:16 Freq: Status: Active Protocol: Document 06/20/21 13:47 SP (Rec: 06/20/21 16:00 SP [id number]) Balance Tests Other Other Balance Tests Performed Pt was able leg go 1/2 way through coming to standing and stand for approx 5 sec before needed to contact RW for balance. TU min 23 sec Tinetti Balance Assessment Scoring and Interpretation Interpretation of Scores High risk for falls(< 19) Tinetti Impairment Rating from Composite 20 to <40% Impaired (Score 17- Score 22) PT-OP-G Mobility & Gait Start: 06/03/21 07:16 Freq: Status: Active Protocol: Document 06/03/21 12:14 MB (Rec: 06/03/21 14:08 MB [id number]) OP Gait Assessment Comments Gait Comments Pt's RW is a little too tall for her but it does not lower further. Pt tends to perform step-to gait, left and then right foot and so PT re-ed pt and daughter about step- through gait forwards and backwards and with turning. She tends to look down to feet d/t foot drop and PT cues pt that her AFO will cotton picker the foot. She states she does not know where it is d/t numbness and this is a barrier. Practice lifting head and looking forward and ed to start practicing step-through gait with head up with AFO and RW at home. 10'x2 today. Her posture is forward and flexed. PT-OP-M Strength Start: 06/03/21 07:16 Freq: Status: Active Protocol: Document 06/03/21 12:14 MB (Rec: 06/03/21 14:11 MB [id number]) Hip Strength Hip Manual Muscle Testing Bilateral Flexion (L2) 5 Normal Comments MMT with pt sitting in w/c today Knee Strength Knee Manual Muscle Testing Left Comments MMT deferred d/t known meniscal tear Right Flexion (S2) 5 Normal Extension (L3) 5 Normal Comments MMT with pt sitting in w/c today Ankle/Foot Strength Ankle and Foot Manual Muscle Testing Left Dorsiflexion (L4) 0 Zero Plantarflexion (S1) 0 Zero Inversion 0 Zero Eversion (S1) 0 Zero Comments Left ankle foot drop and s/p fusion now as well. Edema with some redness medial ankle and no movement of toes or ankle. PROM DF close to neutral. Toes are very cold to touch. Areas of ankle and foot and lower leg with edema changes from socks. Right Dorsiflexion (L4) 3+ Fair+ Inversion 3- Fair- Eversion (S1) 3- Fair- Comments Functional movement of ankle and toes. Toes are cool to touch and s/p some changes to toes s/p pinning second toe. Toe Strength Toe Manual Muscle Testing Left Great Toe Extension 0 Zero Right Great Toe Extension 3+ Fair+ PT-OP-T Assessment and Plan Start: 06/03/21 07:16 Freq: Status: Active Protocol: Document 07/11/21 10:37 MB (Rec: 07/11/21 10:38 MB [id number]) Physical Therapy Plan Discharge Physical Therapy Discharge Reasons Patient Request Discharge Comments Pt is having trouble getting transportation to appointments now that she has moved and so would like to d/c. Will d/c PT.
== END 2021-07-11 12:05 | disposition home or self-care (01) ==
LOC: PHYS 13:45
PROVIDERS: PCP Family Medicine; Referring Provider Orthopaedic Surgery Foot and Ankle Surgery; Visit Provider Orthopaedic Surgery Foot and Ankle Surgery
DX: S82.852A Displaced trimalleolar fracture of left lower leg, initial encounter for closed fracture (principal); S82.142A Displaced bicondylar fracture of left tibia, initial encounter for closed fracture; S83.232A Complex tear of medial meniscus, current injury, left knee, initial encounter; M21.372 Foot drop, left foot
CPT/HCPCS: 97110; 97112; 97116; 97162

== ENCOUNTER → 2022-01-29 13:59 | Outpatient (CLI) | payer OTHER, SELFPAY | PROVIDERS: PCP Family Medicine; Visit Provider Physician Assistant | DX: R30.0 Dysuria (principal) | CPT/HCPCS: 87077; 87086; 87186 ==

== ENCOUNTER → 2022-02-12 08:56 | Outpatient (CLI) | payer OTHER, SELFPAY ==
[2022-02-12 09:51] LABS: Add Manual Diff / Slide Review NO; Basophils Absolute Auto 100 /uL (0-100); Basophils Percent Auto 0.9 % (0-2); Eosinophils Absolute Auto 100 /uL (0-450); Eosinophils Percent Auto 1.4 % (2-4); Hematocrit 39.6 % (36-46); Hemoglobin 13.6 g/dL (12.0-16.0); Lymphocytes Absolute Auto 1500 /uL (1100-4500); Lymphocytes Percent Auto 23.4 % (25-40); Mean Corpuscular HGB Conc 34.3 % (30-36); Mean Corpuscular Hemoglobin 30.6 PG (26-34); Monocytes Absolute Auto 600 /uL (0-900); Monocytes Percent Auto 9.7 % (3-14); Neutrophils Absolute Auto 4200 /uL (1500-7000); Neutrophils Percent Auto 64.6 % (50-75); Platelet Count 345 X10^3/uL (150-400); Red Blood Cell Count 4.45 X10^6/uL (4.0-5.2); Red Cell Distribution Width 12.8 % (11.6-14.8); White Blood Cell Count 6.4 X10^3/uL (4.5-11.0)
[2022-02-12 10:49] LABS: Alanine Aminotransferase 4 IU/L (<35); Albumin Globulin Ratio 1.6 (1.0-2.8); Alkaline Phosphatase 60 U/L (38-126); Aspartate Aminotransferase 22 IU/L (14-36); BUN Creatinine Ratio 19.8 (6-22); Bilirubin Total 0.9 mg/dL (0.2-1.3); Blood Urea Nitrogen 17 mg/dL (7-17); Calcium 9.6 mg/dL (8.4-10.2); Carbon Dioxide 29 mmol/L (22-32); Chloride 106 mmol/L (98-107); Cholesterol 214 mg/dL (140-199); Estimated Glomerular Filt Rate > 60.0 mL/min (>60); Globulin 2.5 g/dL (1.7-4.1); Glucose 103 mg/dL (80-110); HDL Cholesterol 90 mg/dL (40-60); HEMOLYSIS < 15 (0-50); LDL Cholesterol Calculated 103 mg/dL (<100); Phosphorous 3.7 mg/dL (2.8-4.1); Potassium 4.1 mmol/L (3.4-5.1); Sodium 137 mmol/L (137-145); Total Protein 6.5 g/dL (6.3-8.2); Triglycerides 104 mg/dL (35-150)
[2022-02-12 11:23] LABS: Creatinine Urine Random 69.4 mg/dL
[2022-02-12 11:29] LABS: Microalbumin Urine Random < 0.6 mg/dL (0-1.6)
== END ==
PROVIDERS: PCP Family Medicine; Referring Provider Internal Medicine Nephrology; Visit Provider Internal Medicine Nephrology
DX: E78.5 Hyperlipidemia, unspecified (principal); I70.1 Atherosclerosis of renal artery; N18.31 Chronic kidney disease, stage 3a; H91.90 Unspecified hearing loss, unspecified ear; H93.19 Tinnitus, unspecified ear; R09.89 Other specified symptoms and signs involving the circulatory and respiratory systems
CPT/HCPCS: 36415; 80053; 80061; 80069; 82043; 82570; 84443; 85025

== ENCOUNTER 2022-05-12 17:10 | Emergency (ER) | payer OTHER, SELFPAY ==
[2022-05-12] VITALS (8 sets, daily range): BP systolic 121–144; BP diastolic 60–91; PULSE 72–81; RESP 17–25; TEMP 36.7; O2SAT 95–98
--- NOTE | 2022-05-12 17:28 | DI.RAD.S_ITS ---
PROCEDURE: XR CHEST 1V INDICATIONS: chest pain TECHNIQUE: One view of the chest was acquired. COMPARISON: [facility], CR, XR CHEST 2V, 07/19/2020, 11:10. FINDINGS: Surgical changes and devices: None. Lungs and pleura: Lungs are clear. No pleural effusions or pneumothorax. Lungs hyperinflated suggesting COPD. Mediastinum: Mediastinal contours appear normal. Heart size is normal. Bones and chest wall: No suspicious bony lesions. Overlying soft tissues appear unremarkable. IMPRESSION: No acute cardiopulmonary disease process. Dictated by: Negar Parrish MD, PhD on 05/12/2022 at 17:57 Approved by: Negar Parrish MD, PhD on 05/12/2022 at 17:58
[2022-05-12 17:36] LABS: Add Manual Diff / Slide Review NO; Basophils Absolute Auto 0 /uL (0-100); Basophils Percent Auto 0.9 % (0-2); Eosinophils Absolute Auto 100 /uL (0-450); Eosinophils Percent Auto 1.4 % (2-4); Hematocrit 39.7 % (36-46); Hemoglobin 13.6 g/dL (12.0-16.0); Lymphocytes Absolute Auto 1900 /uL (1100-4500); Lymphocytes Percent Auto 34.2 % (25-40); Mean Corpuscular HGB Conc 34.3 % (30-36); Mean Corpuscular Hemoglobin 30.4 PG (26-34); Mean Corpuscular Volume 88.5 fL (80-100); Monocytes Absolute Auto 500 /uL (0-900); Monocytes Percent Auto 9.7 % (3-14); Neutrophils Absolute Auto 3000 /uL (1500-7000); Neutrophils Percent Auto 53.8 % (50-75); Platelet Count 324 X10^3/uL (150-400); Red Blood Cell Count 4.49 X10^6/uL (4.0-5.2); Red Cell Distribution Width 12.8 % (11.6-14.8); White Blood Cell Count 5.6 X10^3/uL (4.5-11.0)
[2022-05-12 17:39] LABS: Alanine Aminotransferase 6 IU/L (<35); Albumin 4.1 g/dL (3.5-5.0); Albumin Globulin Ratio 1.5 (1.0-2.8); Alkaline Phosphatase 65 U/L (38-126); Aspartate Aminotransferase 23 IU/L (14-36); BUN Creatinine Ratio 19.3 (6-22); Bilirubin Total 0.8 mg/dL (0.2-1.3); Blood Urea Nitrogen 21 mg/dL (7-17); Calcium 9.5 mg/dL (8.4-10.2); Carbon Dioxide 27 mmol/L (22-32); Chloride 108 mmol/L (98-107); Creatine Kinase 57 U/L (30-135); Estimated Glomerular Filt Rate 50 mL/min (>60); Globulin 2.7 g/dL (1.7-4.1); Glucose 93 mg/dL (80-110); HEMOLYSIS < 15 (0-50); Lipase 323 U/L (23-300); Magnesium 2.2 mg/dL (1.6-2.3); Sodium 138 mmol/L (137-145); Total Protein 6.8 g/dL (6.3-8.2)
[2022-05-12 17:50] LABS: Troponin I < 0.012 ng/mL (0.01-0.034)
[2022-05-12 18:12] LABS: NT-proBNP (BNP-Adult 18+) 146 pg/mL (<450)
--- NOTE | 2022-05-12 18:13 | ED_ITS ---
HPI - Chest Pain General Chief Complaint: Chest Pain Stated Complaint: difficulty breathing Time Seen by Provider: 05/12/22 18:03 Source: patient Mode of arrival: Wheelchair History of Present Illness HPI narrative: 81-year-old female with history of Parkinson's, hypertension, hyperlipidemia presents with family in the chief complaint of rather vague episodes of shortness of breath that have been happening off and on for least the past few weeks and, perhaps worse over the past week or so. She states that she will be in her normal state of health and then without any obvious causes or contributing factor she will feel and odd sensation in her chest, difficulty with breathing but no chest pain or palpitations. She denies other symptoms such as dizziness, weakness or lightheadedness. She has had no fever or chills nor runny nose, sore throat or cough. She denies any medication change or dietary change. She has seen her primary care provider regarding this and there is a heart monitor that has been scheduled on her back half. On arrival she is asymptomatic. She denies recent travel, orthopnea, lower extremity pain, swe lling, redness Related Data Home Medications Medication Instructions Recorded Confirmed aspirin 325 mg tablet 325 mg PO DAILY ##0 05/26/11 05/12/22 carbidopa 25 mg-levodopa 100 mg 1.5 tab PO TID 05/12/22 05/12/22 tablet carvedilol 3.125 mg tablet 1 tab PO DAILY 05/12/22 05/12/22 clonidine HCl 0.1 mg tablet 1 tab PO DAILY 05/12/22 05/12/22 ramipril 5 mg capsule 1 cap PO DAILY 05/12/22 05/12/22 ropinirole 0.25 mg tablet 1 tab PO TID 05/12/22 05/12/22 selegiline HCl 5 mg tablet 1 tab PO DAILY 05/12/22 05/12/22 Previous Rx's Medication Instructions Recorded entacapone 200 mg tablet 200 mg PO TID #90 tabs 12/05/20 Parking Permit... #1 ea 11/12/21 Allergies Allergy/AdvReac Type Severity Reaction Status Date / Time aluminum Allergy Severe (Antiperspirants) Verified 05/12/22 17:23 Rash propranolol Allergy Severe lips and Verified 05/12/22 17:23 tongue swelling adhesive Allergy Mild BLISTERS Verified 05/12/22 17:23 diclofenac [From Voltaren] AdvReac Severe Difficulty Verified 05/12/22 17:23 Breathing Influenza Virus Vaccines AdvReac Severe SWOLLEN Verified 05/12/22 17:23 [INFLUENZA VIRUS VACCINES] THROAT, TINGLING LIPS AND TONGUE amlodipine AdvReac Intermediate edema of Verified 05/12/22 17:23 ankles/feet Patient History Medical History Cervical vertebral fusion syndrome Chicken pox (~1941) Chronic venous insufficiency Colon polyps (~2009) Drop foot gait Essential hypertension (01/18/06) Fibroids (~1995) Fractures History of urinary incontinence (~2019) Hyperlipidemia Hypertension Labile hypertension 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 Mumps (~1940) Obstructive sleep apnea syndrome (04/12/14) Osteopenia of left hip Osteopenia of right hip Parkinson's disease (~2005) Parkinsons disease Polio (~1945) Screening for malignant neoplasm of colon Skin cancer of chest, excluding breast (~2012) Tinnitus (~1999) Vertigo (~1967) Surgical History Anesthesia Cancer of skin of chest (~2012) H/O right hemicolectomy H/O: hysterectomy (~1997) History of appendectomy (~1953) History of bladder surgery (~1997) History of bunionectomy (~2002) History of cataract removal with insertion of prosthetic lens History of lumbar surgery (~2004) History of tonsillectomy (~1943) Hx of cholecystectomy (~1997) S/P cervical spinal fusion (~1979) Skin cancer of face (~2016) Family History Father Brain bleed Mother Hypertension History of heart disease Brother No problems noted. Sister Breast cancer Hypertension Grandfather Cancer Social History (System 06/06/21 @ 08:05 by Lady Myrna Zafar) household members: other Smoking Status: Never smoker second hand exposure: No alcohol intake: never substance use type: does not use Smoking Status: Never smoker alcohol intake frequency: other Substance Use Type: does not use Exam Initial Vital Signs Initial Vital Signs: Vital Signs Temperature 98.1 F 05/12/22 17:21 Pulse Rate 80 05/12/22 17:21 Respiratory Rate 17 05/12/22 17:21 Blood Pressure 131/72 05/12/22 17:21 Pulse Oximetry 98 05/12/22 17:21 Oxygen Delivery Method 05/12/22 17:21 Course Orders Ordered: Discontinued Medications Sodium Chloride (Normal Saline 0.9%) 500 mls @ 1,000 mls/hr IV BOLUS ONE Stop: 05/12/22 19:07 Last Admin: 05/12/22 18:56 Dose: 1,000 mls/hr Documented By: NANCY Vital Signs Vital signs: Vital Signs - 8 hr 05/12/22 17:21 05/12/22 17:26 05/12/22 17:30 Temperature 98.1 F Pulse Rate 80 81 Respiratory Rate 17 24 Blood Pressure 131/72 121/68 Pulse Oximetry 98 98 Oxygen Delivery Method Room Air 05/12/22 17:30 Temperature Pulse Rate 75 Respiratory Rate 24 Blood Pressure Pulse Oximetry 97 Oxygen Delivery Method MDM - Chest Pain Lab Data Result diagrams: 05/12/22 17:20 05/12/22 17:20 Labs: Lab Results 05/12/22 05/12/22 05/12/22 Range/Units 17:20 17:20 17:20 WBC 5.6 (4.5-11.0) X10^3/uL RBC 4.49 (4.0-5.2) X10^6/uL Hgb 13.6 (12.0-16.0) g/dL Hct 39.7 (36-46) % MCV 88.5 (80-100) fL MCH 30.4 (26-34) PG MCHC 34.3 (30-36) % RDW 12.8 (11.6-14.8) % Plt Count 324 (150-400) X10^3/uL Neut % (Auto) 53.8 (50-75) % Lymph % (Auto) 34.2 (25-40) % [place] % (Auto) 9.7 (3-14) % Eos % (Auto) 1.4 L (2-4) % Baso % (Auto) 0.9 (0-2) % Neut # (Auto) 3000 (8287-3404) /uL Lymph # (Auto) 1900 (2559-7262) /uL [place] # (Auto) 500 (0-900) /uL Eos # (Auto) 100 (0-450) /uL Baso # (Auto) 0 (0-100) /uL Sodium 138 (137-145) mmol/L Potassium 4.0 (3.4-5.1) mmol/L Chloride 108 H (98-107) mmol/L Carbon Dioxide 27 (22-32) mmol/L BUN 21 H (7-17) mg/dL Creatinine 1.09 H (0.52-1.04) mg/dL Estimated GFR 50 L (>60) mL/min BUN/Creatinine Ratio 19.3 (6-22) Glucose 93 (80-110) mg/dL Calcium 9.5 (8.4-10.2) mg/dL Magnesium 2.2 (1.6-2.3) mg/dL Total Bilirubin 0.8 (0.2-1.3) mg/dL AST 23 (14-36) IU/L ALT 6 (<35) IU/L Alkaline Phosphatase 65 (38-126) U/L Total Creatine Kinase 57 (30-135) U/L CK-MB (CK-2) TNP CK-MB (CK-2) Rel Index TNP Troponin I < 0.012 (0.01-0.034) ng/mL NT-Pro-B Natriuret Pep 146 (<450) pg/mL Total Protein 6.8 (6.3-8.2) g/dL Albumin 4.1 (3.5-5.0) g/dL Globulin 2.7 (1.7-4.1) g/dL Albumin/Globulin Ratio 1.5 (1.0-2.8) Lipase 323 H (23-300) U/L SARS-CoV-2 (PCR) (Negative) 05/12/22 Range/Units 18:27 WBC (4.5-11.0) X10^3/uL RBC (4.0-5.2) X10^6/uL Hgb (12.0-16.0) g/dL Hct (36-46) % MCV (80-100) fL MCH (26-34) PG MCHC (30-36) % RDW (11.6-14.8) % Plt Count (150-400) X10^3/uL Neut % (Auto) (50-75) % Lymph % (Auto) (25-40) % [place] % (Auto) (3-14) % Eos % (Auto) (2-4) % Baso % (Auto) (0-2) % Neut # (Auto) (4405-5052) /uL Lymph # (Auto) (4771-8224) /uL [place] # (Auto) (0-900) /uL Eos # (Auto) (0-450) /uL Baso # (Auto) (0-100) /uL Sodium (137-145) mmol/L Potassium (3.4-5.1) mmol/L Chloride (98-107) mmol/L Carbon Dioxide (22-32) mmol/L BUN (7-17) mg/dL Creatinine (0.52-1.04) mg/dL Estimated GFR (>60) mL/min BUN/Creatinine Ratio (6-22) Glucose (80-110) mg/dL Calcium (8.4-10.2) mg/dL Magnesium (1.6-2.3) mg/dL Total Bilirubin (0.2-1.3) mg/dL AST (14-36) IU/L ALT (<35) IU/L Alkaline Phosphatase (38-126) U/L Total Creatine Kinase (30-135) U/L CK-MB (CK-2) CK-MB (CK-2) Rel Index Troponin I (0.01-0.034) ng/mL NT-Pro-B Natriuret Pep (<450) pg/mL Total Protein (6.3-8.2) g/dL Albumin (3.5-5.0) g/dL Globulin (1.7-4.1) g/dL Albumin/Globulin Ratio (1.0-2.8) Lipase (23-300) U/L SARS-CoV-2 (PCR) Negative (Negative) MDM Narrative Medical decision making narrative: Patient with ongoing but unpredictable episodes of brief shortness of breath in the absence of any persistence, provocation, palliation. She has a very reassuring exam, labs and imaging. Multiple diagnoses considered including pneumonia, COVID, cardiac ischemia, electrolyte abnormalities, renal failure versus other but these are thought to be highly unlikely given the results of her history and physical as well as labs. As sure the opinion with her primary care provider that her story is concerning for brief episodes of tachyarrhythmia or bradycardic episodes, no abnormal findings noted during her visits to the emergency department today. She is given extensive return precautions and encouraged to follow closely with her PCP Discharge Plan Departure Patient Disposition: Home Clinical Impression: Acute dyspnea Instructions: DI for Shortness of Breath Activity Restrictions/Additional Instructions: *You have been diagnosed with [episodes of shortness of breath. As we discussed your history and physical exam as well as labs, imaging and vitals have been very reassuring here and there is no evidence of COVID, pneumonia, fluid overload, heart attack or other significant finding.] *What to do: *Please continue to take your regular medications as directed. [ ] New medication prescriptions sent to your pharmacy: [ ] [ ] New medication written as a paper prescription [ x] No new medications given *Please follow up with your primary care provider in 2-3 days, call for an appointment. Let them know you were seen in the Emergency Department and that we ask that you be seen in follow up. We will electronically transmit a record of today's note if your PCP is in our system *If you do not have a primary care provider please contact the [facility] Resource line at [phone]. They will ask some questions about your medical history and help get you set up with a doctor in the community. *Return to Emergency Department if you should have any new, worsening or concerning symptoms, such as [fever greater than 101 F, shaking chills, worsening pain, persistent vomiting or other bothersome symptoms] Prescriptions: No Action aspirin 325 mg Tablet 325 mg PO DAILY Qty: 0 entacapone 200 mg tablet 200 mg PO TID Qty: 90 3RF (DME) Parking Permit... See Rx Instructions .Route .MEDSUPPLY Qty: 1 0RF Rx Instructions: I find this patient to be medically disabled and qualified for disabled parking as indicated, and signed, on the Accompanying Disabled Parking Application for Individuals. clonidine HCl 0.1 mg tablet 1 tab PO DAILY carvedilol 3.125 mg tablet 1 tab PO DAILY ropinirole 0.25 mg tablet 1 tab PO TID selegiline HCl 5 mg tablet 1 tab PO DAILY Label Comments: TAKE ONE CAPSULE BY MOUTH EACH MORNING. INCREASE AFTER 1 WEEK TOLERATED TO 1 CAPSULE EVERY MORNING AND 1 CAPSULE IN THE [place] carbidopa-levodopa 25-100 mg tablet 1.5 tab PO TID ramipril 5 mg capsule 1 cap PO DAILY Referrals: Morgan Sims MD [Primary Care Provider] - Visit Report Forms: Patient Portal/API
[2022-05-12] MEDS: SODIUM CHLORIDE 0.9% 500 ML 1000 ML IV (18:56)
[2022-05-12 18:59] LABS: COVID19 -Nasal RAPID Negative (Negative)
== END 2022-05-12 19:39 | disposition home or self-care (01) ==
PROVIDERS: Emergency Medicine; Emergency Provider Emergency Medicine; PCP Family Medicine
DX: R07.9 Chest pain, unspecified (principal); R06.00 Dyspnea, unspecified; Z20.822 Contact with and (suspected) exposure to COVID-19
CPT/HCPCS: 36415; 71045; 80053; 82550; 83690; 83735; 83880; 84484; 85025; 87635; 93005; 93010; 99284; C9803

== ENCOUNTER → 2022-05-25 13:40 | Outpatient (CLI) | payer OTHER, SELFPAY ==
--- NOTE | 2022-06-17 09:05 | P.HOLT.S_ITS ---
Community Affairs Director Report Referral & Results Date Patient Seen: 05/25/22 Requesting provider: Morgan Sims Indication: Palpitations Duration of monitoring (days): 13 Diary information: There were 28 patient triggered events and 14 patient diary entries Patient triggered events were variably associated with (within 45 seconds) sinus rhythm, PACs, PVCs including ventricular bigeminy and SVT Patient diary events were variably associated with (within 45 seconds) sinus rhythm, PVCs, PACs and SVT Data: Minimum heart rate identified was 54 beats per minute at 05:34 on 06/07/2022 Maximum sinus heart rate was 132 beats per minute at 23:52 on 06/06/2022 Maximum overall heart rate was 235 beats per minute at 16:11 on 06/07/2022 georges g a run of SVT Approximately 4.8% of identified beats were supraventricular ectopic in origin which would classify them as occasional Less than 1% of identified beats were ventricular ectopic in origin which would classify them as rare There were 2 runs of nonsustained monomorphic ventricular tachycardia identified by the computer but upon review of the strips seems more likely these are of a supraventricular origin with heart rates between 133 and 182. I would not classify these as ventricular tachycardia but more supraventricular tachycardia Patient with 451 runs of SVT with heart rate between 74 and 235 beats per minute. 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 Patient events were variably associated with a variety of dysrhythmias as above Clinical correlation suggested
== END ==
PROVIDERS: PCP Family Medicine; Referring Provider Family Medicine; Visit Provider Family Medicine
DX: R00.2 Palpitations (principal)
CPT/HCPCS: 93246; 93248

== ENCOUNTER → 2022-06-01 16:25 | Outpatient (CLI) | payer OTHER, SELFPAY ==
[2022-06-01 17:40] LABS: Add Manual Diff / Slide Review NO; Basophils Absolute Auto 0 /uL (0-100); Basophils Percent Auto 0.8 % (0-2); Eosinophils Absolute Auto 100 /uL (0-450); Eosinophils Percent Auto 1.7 % (2-4); Hematocrit 38.7 % (36-46); Hemoglobin 13.2 g/dL (12.0-16.0); Lymphocytes Absolute Auto 1800 /uL (1100-4500); Lymphocytes Percent Auto 27.4 % (25-40); Mean Corpuscular HGB Conc 34.2 % (30-36); Mean Corpuscular Hemoglobin 30.7 PG (26-34); Mean Corpuscular Volume 89.6 fL (80-100); Monocytes Absolute Auto 600 /uL (0-900); Monocytes Percent Auto 8.9 % (3-14); Neutrophils Absolute Auto 4000 /uL (1500-7000); Neutrophils Percent Auto 61.2 % (50-75); Platelet Count 324 X10^3/uL (150-400); Red Blood Cell Count 4.32 X10^6/uL (4.0-5.2); Red Cell Distribution Width 12.7 % (11.6-14.8); White Blood Cell Count 6.6 X10^3/uL (4.5-11.0)
[2022-06-01 17:50] LABS: BUN Creatinine Ratio 22.8 (6-22); Blood Urea Nitrogen 18 mg/dL (7-17); Calcium 9.7 mg/dL (8.4-10.2); Carbon Dioxide 28 mmol/L (22-32); Chloride 108 mmol/L (98-107); Estimated Glomerular Filt Rate > 60 mL/min (>60); Glucose 98 mg/dL (80-110); HEMOLYSIS < 15 (0-50); Phosphorous 3.5 mg/dL (2.8-4.1); Potassium 4.5 mmol/L (3.4-5.1); Sodium 138 mmol/L (137-145)
[2022-06-01 18:23] LABS: Appearance Urine UA CLOUDY; Bilirubin Urine UA NEGATIVE (NEGATIVE); Color Urine UA RED; Glucose Urine UA TRACE g/dL (Negative); Ketones Urine UA 1+ (NEGATIVE); Leukocyte Esterase Urine UA TRACE (NEGATIVE); Nitrite Urine UA POSITIVE (Negative); Occult Blood Urine UA TRACE-LYSED (Negative); Protein Urine UA TRACE (Negative); Urobilinogen Urine UA 0.2 E.U./dL (0.2)
[2022-06-01 18:35] LABS: Bacteria Urine Many (>30); Culture Indicated Urine Specimen Cultured; RBC Urine 0-1/HPF (0-5/HPF); WBC Urine 5-10/HPF (0-5/HPF)
[2022-06-01 18:37] LABS: Creatinine Urine Random 146.5 mg/dL
[2022-06-01 19:28] LABS: Microalbumi Creatinin Ratio Ur 1808.8 ug/mg CR (<30)
== END ==
PROVIDERS: PCP Family Medicine; Referring Provider Internal Medicine Nephrology; Visit Provider Internal Medicine Nephrology
DX: I70.1 Atherosclerosis of renal artery (principal); N18.31 Chronic kidney disease, stage 3a
CPT/HCPCS: 36415; 80069; 81001; 82043; 82570; 85025; 87077; 87086; 87186

== ENCOUNTER → 2022-08-27 14:46 | Outpatient (CLI) | payer OTHER, SELFPAY ==
--- NOTE | 2022-08-27 14:47 | DI.ECHO.S_ITS ---
[facility] +---------+ : : [id number] : : : : [phone] : : : : Phone: [phone]---------+ Echocardiogram Report + + :Name: BRAD MELVIN Study Date: 08/27/2022 Height: 64 in : :[facility] ReadingLocation: Weight: 115 lb : : Gender: Female BSA: 1.5 m2 : :: 1940 Age: 82 yrs BP: 176/76 mmHg: :Reason For Study: Arrhythmia, SVT : :Ordering Physician: TE, : :JO ANN Performed By: Ashok Winn : :Referring: JO ANN TIWARI : + + Interpretation Summary 1) Normal left ventricular thickness, size, wall motion, and systolic function (EF 65-70%). 2) Normal right ventricular size and function. 3) Mild aortic regurgitation present. 4) Compared to the Echo done 11/21/2018, no significnat change. Procedure: A two-dimensional transthoracic echocardiogram with color flow and Doppler was performed. The study quality was technically adequate. Comparison is made with the echocardiogram of 11/21/2018. The patient was in normal sinus rhythm during the exam. Left Ventricle: The left ventricle is normal in size and wall thickness. Proximal septal thickening is noted. The ejection fraction is estimated to be 65-70%. Left ventricular systolic function is normal. There are no focal wall motion abnormalities. Diastolic parameters suggest probable normal left ventricular diastolic function and normal filling pressures. Right Ventricle: The right ventricle is normal in size and function. Atria: Both atria are normal in size. The interatrial septum grossly appears intact with no obvious evidence for an atrial septal defect. Mitral Valve: The mitral valve is normal in structure and function. There is mild mitral regurgitation. Aortic Valve: There is mild aortic valve sclerosis. The aortic valve is trileaflet. The aortic valve opens well. There is no aortic valve stenosis. There is mild aortic regurgitation. Tricuspid Valve: The tricuspid valve is normal in structure and function. There is trace tricuspid regurgitation. The right ventricular systolic pressure is estimated to be at least 31 mmHg based on an estimated right atrial pressure of 3 mm Hg. Pulmonic Valve: The pulmonic valve is not well seen, but is grossly normal. There is no pulmonic valvular regurgitation. Great Vessels: The aortic root is normal size. The ascending aorta could not be visualized. The IVC is of normal diameter and collapses greater than 50% with a sniff. This suggests a low right atrial pressure of 3 mm Hg. Pericardium/ Pleura There is no pericardial effusion. There is no pleural effusion. MMode/2D Measurements & Calculations LVIDd: 4.4 cm LVOT diam: 1.9 cm LVIDs: 2.7 cm Ao root diam: 3.3 cm FS: 38.6 % IVSd: 0.80 cm LVPWd: 0.80 cm LV dominguez. diameter/BSA (cm/m^2): 2.8 LV sys. diameter/BSA (cm/m^2): 1.7 LA dimension: 2.6 cm RA long axis: 3.9 cm LA A2 area: 13.7 cm2 LA A4 area: 11.9 cm2 LA length (vol): 4.7 cm LA vol: 29.7 ml LA vol index: 19.2 ml/m2 TAPSE_phl: 3.0 cm Doppler Measurements & Calculations Ao V2 max: 140.0 cm/sec LVOT Max Manolo: 106.0 cm/sec Ao V2 mean: 102.0 cm/sec LV V1 max P.5 mmHg Ao max P.0 mmHg LV V1 VTI: 22.6 cm Ao mean P.0 mmHg APOLLO(I,D): 2.1 cm2 Ao V2 VTI: 30.8 cm APOLLO(V,D): 2.1 cm2 sev ratio: 0.73 APOLLO indexed to BSA (cm^2/m^2): 1.3 AI P1/2t: 473.9 msec AI dec slope: 212.0 cm/sec2 MV E max manolo: 108.0 cm/sec TR max manolo: 262.0 cm/sec MV A max manolo: 94.7 cm/sec TR max P.5 mmHg MV E/A: 1.1 Med Peak E' Manolo: 9.4 cm/sec E/E' med: 11.5 Lat Peak E' Manolo: 9.8 cm/sec E/E' lat: 11.1 E/e' average: 11.3 MV dec time: 0.21 sec SV(LVOT): 64.1 ml AV P1/2t-pr_phl: 473.0 msec AV VR_phl: 0.76 APOLLO(VTI)/BSA_phl: 1.3 MV P1/2t-pr_phl: 62.0 msec Reading Physician:05:20 PM
== END ==
PROVIDERS: PCP Family Medicine; Referring Provider Internal Medicine Cardiovascular Disease; Visit Provider Internal Medicine Cardiovascular Disease
DX: I08.0 Rheumatic disorders of both mitral and aortic valves (principal); I47.1 Supraventricular tachycardia
CPT/HCPCS: 93306

== ENCOUNTER 2022-10-25 00:26 | Emergency (ER) | payer OTHER, SELFPAY ==
[2022-10-25 00:37] VITALS: BP 150/67; PULSE 71; RESP 26; TEMP 36.9; O2SAT 98
--- NOTE | 2022-10-25 00:45 | PC.NURSE ---
Family to bedside
--- NOTE | 2022-10-25 00:47 | ED.FALL ---
HPI - Fall General Chief Complaint: Fall Stated Complaint: GLF,SOB,Anxiety Time Seen by Provider: 10/25/22 00:27 Source: patient and EMS Mode of arrival: EMS History of Present Illness HPI Narrative: 82-year-old female nonsmoker with history of hypertension, anxiety and Parkinson's presents by EMS for evaluation of pain in her right leg. She was ambulating and got her feet caught up underneath her and fell, striking her right lower leg on the ground, she has a small bruise and minimal pain. She states that when she was struggling to get herself up she became short of breath and admittedly became very anxious which worsened her sense of shortness of breath. She no longer is having trouble breathing. She denies any head, neck or back pain. She denies numbness, tingling or weakness and is otherwise well and free of complaint. Related Data Home Medications Medication Instructions Recorded Confirmed aspirin 325 mg tablet 325 mg PO DAILY ##0 05/26/11 05/12/22 carbidopa 25 mg-levodopa 100 mg 1.5 tab PO TID 05/12/22 05/12/22 tablet carvedilol 3.125 mg tablet 1 tab PO DAILY 05/12/22 05/12/22 clonidine HCl 0.1 mg tablet 1 tab PO DAILY 05/12/22 05/12/22 ramipril 5 mg capsule 1 cap PO DAILY 05/12/22 05/12/22 ropinirole 0.25 mg tablet 1 tab PO TID 05/12/22 05/12/22 selegiline HCl 5 mg tablet 1 tab PO DAILY 05/12/22 05/12/22 Previous Rx's Medication Instructions Recorded entacapone 200 mg tablet 200 mg PO TID #90 tabs 12/05/20 Parking Permit... #1 ea 11/12/21 albuterol sulfate 90 mcg/actuation 2 puff inhalation Q6H PRN 10/20/22 aerosol inhaler shortness of breath or wheezing #6.7 grams Allergies Allergy/AdvReac Type Severity Reaction Status Date / Time aluminum Allergy Severe (Antiperspirants) Verified 05/12/22 17:23 Rash propranolol Allergy Severe lips and Verified 05/12/22 17:23 tongue swelling adhesive Allergy Mild BLISTERS Verified 05/12/22 17:23 diclofenac [From Voltaren] AdvReac Severe Difficulty Verified 05/12/22 17:23 Breathing Influenza Virus Vaccines AdvReac Severe SWOLLEN Verified 05/12/22 17:23 [INFLUENZA VIRUS VACCINES] THROAT, TINGLING LIPS AND TONGUE amlodipine AdvReac Intermediate edema of Verified 05/12/22 17:23 ankles/feet Review of Systems Review of Systems Narrative: GENERAL: Denies chills, fatigue, malaise, fever, sweats. HEENT: Denies sinus pain, ear pain, sore throat, difficulty swallowing, dizziness. RESPIRATORY: Denies dyspnea, cough, wheezing, hemoptysis, sputum. CARDIOVASCULAR: Denies chest pain, palpitations, orthopnea, edema, GASTROINTESTINAL: Denies nausea, vomiting, abdominal pain, diarrhea, constipation, melena. : Denies dysuria, frequency, incontinence, hematuria, urinary retention. MUSCULOSKELETAL: d see HPI SKIN: Denies rash, skin lesions, or other NEUROLOGIC: Denies weakness, headache, numbness, change in speech, confusion, seizures, incoordination. PSYCHIATRIC: No concerning psychosocial issues. 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 Mumps (~194) Obstructive sleep apnea syndrome (04/12/14) Osteopenia of left hip Osteopenia of right hip Parkinson's disease (~2005) Parkinsons disease Polio (~194) Screening for malignant neoplasm of colon Skin cancer of chest, excluding breast (~2012) Tinnitus (~1999) Vertigo (~1967) Surgical History Anesthesia Cancer of skin of chest (~2012) H/O right hemicolectomy H/O: hysterectomy (~1997) History of appendectomy (~1953) History of bladder surgery (~1997) History of bunionectomy (~2002) History of cataract removal with insertion of prosthetic lens History of lumbar surgery (~2004) History of tonsillectomy (~194) Hx of cholecystectomy (~1997) S/P cervical spinal fusion (~1979) Skin cancer of face (~2017) Family History Father Brain bleed Mother Hypertension History of heart disease Brother No problems noted. Sister Breast cancer Hypertension Grandfather Cancer Social History household members: other Smoking Status: Never smoker second hand exposure: No alcohol intake: never substance use type: does not use Smoking Status: Never smoker alcohol intake frequency: other Substance Use Type: does not use Exam Narrative Exam Narrative: GENERAL: [82] year old patient appears stated age. Well-developed patient, in mild distress. Anxious, no evidence of respiratory distress HEAD: Atraumatic. Normocephalic. EYES: Pupils equal round and reactive. Extraocular motions intact. No scleral icterus. No injection or drainage. ENT: Nose without bleeding, purulent drainage. Throat without erythema, tonsillar hypertrophy or exudate. Airway patent. NECK: Trachea midline. Non tender CARDIOVASCULAR: Regular rate and rhythm without murmurs, gallops, or rubs. RESPIRATORY: Clear to auscultation. Breath sounds equal bilaterally. No wheezes, rales, or rhonchi. GASTROINTESTINAL: Abdomen soft, non-tender, nondistended. EXTREMITIES: Minimal superficial bruising to right lateral lower extremity, no break in the skin, no bony point tenderness, full painless range of motion. No pain in right hip, knee or ankle. BACK: Nontender without deformity or crepitance. No flank tenderness. NEURO: AOx3. SKIN: No rash or erythema of visible areas Initial Vital Signs Initial Vital Signs: Vital Signs Temperature 98.4 F 10/25/22 00:37 Pulse Rate 71 10/25/22 00:37 Respiratory Rate 26 H 10/25/22 00:37 Blood Pressure 150/67 H 10/25/22 00:37 Pulse Oximetry 98 10/25/22 00:37 Oxygen Delivery Method 10/25/22 00:37 Course Vital Signs Vital signs: Vital Signs - 8 hr 10/25/22 00:37 Temperature 98.4 F Pulse Rate 71 Respiratory Rate 26 H Blood Pressure 150/67 H Pulse Oximetry 98 Oxygen Delivery Method Room Air MDM - Fall MDM Narrative Medical decision making narrative: 82-year-old female with low risk ground level fall and minimal if any pain to right lower extremity. I have had extensive discussion at the bedside with patient and 2 family members and we sure the opinion that she has an extremely low likelihood of having a bony abnormality such as fracture or dislocation and elect to not perform x-rays. She is given reassurance, return precautions and questions answered to her apparent satisfaction Discharge Plan Departure Patient Disposition: Home Clinical Impression: Contusion of leg, right Instructions: How to Prevent Falls Activity Restrictions/Additional Instructions: *You have been diagnosed with [right leg contusion. As we discussed your history and physical exam are very reassuring and there is no evidence to suggest you would have a fracture or dislocation. Furthermore your lung exam is very reassuring and there is no evidence of wheezing or crackles, your vital signs are very stable and oxygen level in the upper 90s.] *What to do: *Please continue to take your regular medications as directed. *Please follow up with your primary care provider in 2-3 days, call for an appointment. Let them know you were seen in the Emergency Department and that we ask that you be seen in follow up. We will electronically transmit a record of today's note if your PCP is in our system *Return to Emergency Department if you should have any new, worsening or concerning symptoms, such as [fever greater than 101 F, shaking chills, worsening pain, persistent vomiting or other bothersome symptoms] Prescriptions: No Action aspirin 325 mg Tablet 325 mg PO DAILY Qty: 0 entacapone 200 mg tablet 200 mg PO TID Qty: 90 3RF (DME) Parking Permit... See Rx Instructions .Route .MEDSUPPLY Qty: 1 0RF Rx Instructions: I find this patient to be medically disabled and qualified for disabled parking as indicated, and signed, on the Accompanying Disabled Parking Application for Individuals. albuterol sulfate 90 mcg/actuation HFA aerosol inhaler 2 puff inhalation Q6H PRN (Reason: shortness of breath or wheezing) Qty: 6.7 0RF clonidine HCl 0.1 mg tablet 1 tab PO DAILY carvedilol 3.125 mg tablet 1 tab PO DAILY ropinirole 0.25 mg tablet 1 tab PO TID selegiline HCl 5 mg tablet 1 tab PO DAILY Label Comments: TAKE ONE CAPSULE BY MOUTH EACH MORNING. INCREASE AFTER 1 WEEK TOLERATED TO 1 CAPSULE EVERY MORNING AND 1 CAPSULE IN THE [place] carbidopa-levodopa 25-100 mg tablet 1.5 tab PO TID ramipril 5 mg capsule 1 cap PO DAILY Referrals: Morgan Sims MD [Primary Care Provider] - Visit Report Forms: Patient Portal/API
--- NOTE | 2022-10-25 01:39 | PC.NURSE ---
up to bathroom - assisted to stand - to BR via w/c
== END 2022-10-25 01:38 | disposition home or self-care (01) ==
PROVIDERS: Emergency Provider Emergency Medicine; PCP Family Medicine
DX: S80.11XA Contusion of right lower leg, initial encounter (principal); X58.XXXA Exposure to other specified factors, initial encounter
CPT/HCPCS: 99281

== ENCOUNTER → 2022-12-15 12:17 | Outpatient (CLI) | payer OTHER, SELFPAY ==
[2022-12-15 13:25] LABS: Appearance Urine UA SL CLOUDY
[2022-12-15 13:27] LABS: Color Urine UA ORANGE
[2022-12-15 14:02] LABS: Bacteria Urine Many (>30); RBC Urine None Seen (0-5/HPF); Squamous Epithelial Cell Urine 1-5 /HPF (0-5/HPF); WBC Urine 10-30/HPF (0-5/HPF)
[2022-12-15 14:03] LABS: Culture Indicated Urine Specimen Cultured
== END ==
PROVIDERS: PCP Family Medicine; Referring Provider Family Medicine; Visit Provider Family Medicine
DX: R39.15 Urgency of urination (principal)
CPT/HCPCS: 81001; 87077; 87086; 87186

== ENCOUNTER → 2023-01-01 15:51 | Outpatient (CLI) | payer OTHER, SELFPAY ==
[2023-01-01 16:34] LABS: Appearance Urine UA CLEAR; Bilirubin Urine UA NEGATIVE (NEGATIVE); Color Urine UA ORANGE; Glucose Urine UA NEGATIVE (Negative); Ketones Urine UA TRACE (NEGATIVE); Leukocyte Esterase Urine UA NEGATIVE (NEGATIVE); Nitrite Urine UA NEGATIVE (Negative); Occult Blood Urine UA TRACE-INTACT (Negative); Protein Urine UA NEGATIVE (Negative); Specific Gravity Urine UA 1.015 (1.000-1.035); Urobilinogen Urine UA 0.2 E.U./dL (0.2)
[2023-01-01 16:48] LABS: Amorphous Sediment Urine 1+; Bacteria Urine Few (2-10); Culture Indicated Urine Specimen Cultured; Mucus Urine 1+ (Negative); RBC Urine 1-5/HPF (0-5/HPF); Squamous Epithelial Cell Urine 1-5 /HPF (0-5/HPF); WBC Urine 1-5/HPF (0-5/HPF)
== END ==
PROVIDERS: PCP Family Medicine; Referring Provider Family Medicine; Visit Provider Family Medicine
DX: R30.9 Painful micturition, unspecified (principal); R35.0 Frequency of micturition
CPT/HCPCS: 81001; 87086

== ENCOUNTER → 2023-03-04 15:15 | Outpatient (CLI) | payer OTHER, SELFPAY | PROVIDERS: PCP Family Medicine; Visit Provider Urology | DX: Z87.440 Personal history of urinary (tract) infections (principal); Z87.898 Personal history of other specified conditions | CPT/HCPCS: 87086 ==

== ENCOUNTER → 2023-03-04 15:49 | Outpatient (CLI) | payer OTHER, SELFPAY ==
[2023-03-04 17:38] LABS: BUN Creatinine Ratio 22.2 (6-22); Blood Urea Nitrogen 20 mg/dL (7-17); Calcium 9.2 mg/dL (8.4-10.2); Carbon Dioxide 28 mmol/L (22-32); Chloride 107 mmol/L (98-107); Estimated Glomerular Filt Rate > 60 mL/min (>60); Glucose 81 mg/dL (80-110); HEMOLYSIS < 15 (0-50); Potassium 3.9 mmol/L (3.4-5.1); Sodium 139 mmol/L (137-145)
== END ==
PROVIDERS: Urology; PCP Family Medicine; Referring Provider Family Medicine; Visit Provider Family Medicine
DX: N39.0 Urinary tract infection, site not specified (principal); G20 Parkinson's disease; M54.41 Lumbago with sciatica, right side; Z87.440 Personal history of urinary (tract) infections; Z87.898 Personal history of other specified conditions
CPT/HCPCS: 36415; 51798; 80048; 81002; 87086; 99214

== ENCOUNTER → 2023-03-16 11:08 | Outpatient (CLI) | payer OTHER, SELFPAY | PROVIDERS: PCP Family Medicine; Visit Provider Specialist | DX: N39.0 Urinary tract infection, site not specified (principal); Z87.440 Personal history of urinary (tract) infections | CPT/HCPCS: 51701; 87086 ==

== ENCOUNTER → 2023-03-29 15:30 | Outpatient (CLI) | payer OTHER, SELFPAY ==
--- NOTE | 2023-03-29 | DI.CT.S_ITS ---
PROCEDURE: CT IVP A/P W/WO INDICATIONS: Recurrent E coli urinary tract infection TECHNIQUE: Optional 5 mm thick noncontrast images acquired from the diaphragm to the symphysis pubis. After the administration of intravenous contrast, 5 mm thick images acquired from the diaphragm to the symphysis pubis after a 10-minute delay. 2 mm thick coronal and sagittal reformats were then performed of the kidneys and ureters. For radiation dose reduction, the following was used: automated exposure control, adjustment of mA and/or kV according to patient size. COMPARISON: None. FINDINGS: Image quality: Excellent. Lung bases: Lung bases are clear. Heart size is normal. Urinary system: Both kidneys are normal in size, without hydronephrosis or nephrolithiasis on pre-contrast images. No perinephric fat stranding. Postcontrast, there are numerous corticomedullary cystic changes in each kidney as well as demonstration of heterogeneous parenchymal enhancement, notably with areas of cortical hypoenhancement, not discretely cysts. No solid intrarenal masses. The collecting systems are normally opacified. No hydroureter or ureteral calcification. Mild posterior pelvic floor prolapse. The urinary bladder is largely decompressed. There is a small focus of air anteriorly in the urinary bladder. Given under distension, bladder wall thickness is normal. No calcified bladder stones. Other solid organs: Liver is normal in size and enhancement. Small right lobe liver cyst. Gallbladder is surgically absent . Biliary system is non dilated. Pancreas enhances normally. Spleen is normal in size and enhancement. No adrenal nodules. Peritoneum and bowel: There is a surgical staple line in the right lower quadrant of probable partial colectomy. There is extensive diverticular disease in the pelvic loops of colon, many of which have impacted, hyperdense retained material. No pericolonic inflammation or focal wall thickening at this point. Stomach and small bowel are otherwise unremarkable. No free fluid or free air. Nodes and vessels: No retroperitoneal or mesenteric adenopathy by size criteria. Aorta and inferior vena cava are normal in size. Abdominal wall: No ventral hernias. Pelvis: The uterus is absent. There is mild pelvic floor laxity, mainly posterior. No visible pelvic adenopathy. Bones: No suspicious bone lesions or fractures. Severe degenerative changes in the mid lumbar spine. IMPRESSION: 1. No calcifications to suggest obstructive uropathy. 2. There is heterogeneous enhancement of renal parenchyma without adjacent perinephric inflammation. This may be physiologic, although chronic pyelonephritis is not excluded. 3. Air within the urinary bladder is suspicious for a colovesical fistula, particularly given the appearance of extensive adjacent diverticular disease. There is no acute inflammation surrounding the bladder wall or sigmoid colon at this point. 4. Mild pelvic floor laxity. Dictated by: Lilia Colvin M.D. on 03/29/2023 at 16:19 Approved by: Lilia Colvin M.D. on 03/29/2023 at 16:29
== END ==
PROVIDERS: PCP Family Medicine; Referring Provider Urology; Visit Provider Urology
DX: N39.0 Urinary tract infection, site not specified (principal)
CPT/HCPCS: 74178; Q9967

== ENCOUNTER → 2023-04-30 13:51 | Outpatient (CLI) | payer OTHER, SELFPAY | PROVIDERS: PCP Family Medicine; Visit Provider Urology | DX: N39.0 Urinary tract infection, site not specified (principal) | CPT/HCPCS: 51701; 51798; 87086 ==

== ENCOUNTER → 2023-05-19 13:30 | Outpatient (CLI) | payer OTHER, SELFPAY | PROVIDERS: PCP Family Medicine; Visit Provider Urology | DX: N39.0 Urinary tract infection, site not specified (principal); N95.2 Postmenopausal atrophic vaginitis | CPT/HCPCS: 52000; 81002; 87086 ==

== ENCOUNTER → 2024-03-30 16:32 | Outpatient (CLI) | payer OTHER, SELFPAY ==
[2024-03-30 17:43] LABS: Add Manual Diff / Slide Review NO; Basophils Absolute Auto 0 /uL (0-100); Basophils Percent Auto 0.9 % (0-2); Eosinophils Absolute Auto 100 /uL (0-450); Eosinophils Percent Auto 1.8 % (2-4); Hematocrit 39.8 % (36-46); Hemoglobin 13.2 g/dL (12.0-16.0); Lymphocytes Absolute Auto 1200 /uL (1100-4500); Lymphocytes Percent Auto 22.8 % (25-40); Mean Corpuscular HGB Conc 33.3 % (30-36); Mean Corpuscular Volume 90.2 fL (80-100); Monocytes Absolute Auto 600 /uL (0-900); Monocytes Percent Auto 10.3 % (3-14); Neutrophils Absolute Auto 3400 /uL (1500-7000); Neutrophils Percent Auto 64.2 % (50-75); Platelet Count 364 X10^3/uL (150-400); Red Blood Cell Count 4.41 X10^6/uL (4.0-5.2); Red Cell Distribution Width 13.1 % (11.6-14.8); White Blood Cell Count 5.3 X10^3/uL (4.5-11.0)
[2024-03-30 23:00] LABS: Alanine Aminotransferase 6 IU/L (<35); Albumin 4.2 g/dL (3.5-5.0); Albumin Globulin Ratio 1.8 (1.0-2.8); Alkaline Phosphatase 65 U/L (38-126); Aspartate Aminotransferase 23 IU/L (14-36); BUN Creatinine Ratio 35.6 (6-22); Bilirubin Total 0.8 mg/dL (0.2-1.3); Blood Urea Nitrogen 26 mg/dL (7-17); Calcium 9.7 mg/dL (8.4-10.2); Carbon Dioxide 24 mmol/L (22-32); Chloride 112 mmol/L (98-107); Estimated Glomerular Filt Rate > 60 mL/min (>60); Globulin 2.4 g/dL (1.7-4.1); Glucose 94 mg/dL (80-110); HEMOLYSIS < 15 (0-50); Potassium 4.2 mmol/L (3.4-5.1); Sodium 141 mmol/L (137-145); Total Protein 6.6 g/dL (6.3-8.2)
[2024-03-31 13:57] LABS: TSH w/ Reflex to FT4 2.76 uIU/mL (0.47-4.68)
== END ==
PROVIDERS: PCP Family Medicine; Referring Provider Family Medicine; Visit Provider Family Medicine
DX: I10 Essential (primary) hypertension (principal); Z74.09 Other reduced mobility; G20.A1 Parkinson's disease without dyskinesia, without mention of fluctuations
CPT/HCPCS: 36415; 80053; 84443; 85025